=== PATIENT | female | born 1995 | race Caucasian/White ===

== ENCOUNTER → 2018-08-25 11:47 | Outpatient (CLI) | payer MEDICAID, SELFPAY ==
[2018-08-25 12:15] LABS: Basophils % 0.5 % (0.1-2.0); Eosinophils # 0.2 K/mm3 (0.0-0.4); Eosinophils % 2.7 % (0.1-12.0); Hematocrit 38.6 % (37.0-47.0); Hemoglobin 13.1 g/dL (12.2-16.2); Lymphocytes # 1.7 K/mm3 (0.7-4.5); Lymphocytes % 22.5 % (10-50); Mean Corpuscular Hemoglobin 29.1 pg (27.0-31.2); Mean Corpuscular Volume 85.5 fl (81-99); Mean Platelet Volume 7.7 fl (7.4-10.4); Monocytes # 0.4 K/mm3 (0.1-1.0); Neutrophils # 5.3 K/mm3 (1.8-7.8); Neutrophils % 69.1 % (37.0-80.0); Platelet Count 255 K/mm3 (142-424); Red Blood Count 4.51 M/mm3 (4.20-5.40); White Blood Count 7.7 K/mm3 (4.8-10.8)
[2018-08-26 08:53] LABS: HIV Screen 4th Generation wRfx Non Reactive (Non Reactive)
[2018-08-26 12:44] LABS: Hepatitis B Surface Antigen Negative (Negative); Hepatitis C Antibody <0.1 s/co ratio (0.0-0.9); Rapid Plasma Reagin Ab Titer Non Reactive (NonRea<1:1)
== END ==
PROVIDERS: Visit Provider Nurse Practitioner Obstetrics & Gynecology
DX: Z34.90 Encounter for supervision of normal pregnancy, unspecified, unspecified trimester (principal)
CPT/HCPCS: 36415; 85025; 86592; 86703; 86762; 86850; 87340; 87380; G0432

== ENCOUNTER → 2018-09-01 13:15 | Outpatient (CLI) | payer MEDICAID, SELFPAY ==
--- NOTE | 2018-09-01 13:17 | US_ITS ---
US OB transvaginal HISTORY: ITS.REASON: US OB Dates ORDERING PHYSICIAN: Angel Patiño MD PATIENT AGE: 23 years COMPARISON: None FINDINGS: An intrauterine gestational sac is present with a pole with a crown-rump length of 2.44cm correlating to gestational age of 9w2d. heart tones are present with an FHR of 170 bpm's. Yolk sac is noted. Adnexa: 7 mm left ovarian cyst. Right ovary not visualized. IMPRESSION: Live intrauterine gestation at 9 weeks 2 days as described above. Estimated due date by Ultrasound is 04/04/2019
== END ==
PROVIDERS: PCP Emergency Medicine; Visit Provider Nurse Practitioner Obstetrics & Gynecology
DX: O26.841 Uterine size-date discrepancy, first trimester (principal)
CPT/HCPCS: 76817

== ENCOUNTER → 2018-11-11 12:48 | Outpatient (CLI) | payer MEDICAID, SELFPAY ==
--- NOTE | 2018-11-11 12:50 | US_ITS ---
US OB /maternal detail: INDICATION: ITS.REASON: US OB Complete ORDERING PHYSICIAN: Angel Patiño MD PATIENT AGE: 23 years TECHNIQUE: ultrasound transabdominal scanning. COMPARISON: No previous relevant studies. FINDINGS: Single viable intrauterine gestation. Breech position. Placenta: Posterior/fundal placenta grade 1. There is average amount fluid. The cervix appears satisfactory. Closed and measuring 4.7 cm in length. Dilation is moderately limited due to maternal body habitus. Complete survey performed and was unremarkable on the submitted images as in PACS. No discrete anomalies identified on survey imaging by technologist. Active fetus. Three-vessel cord with satisfactory umbilical cord insertion. 4- chamber heart noted. Survey of brain & ventricles unremarkable. Face and neck survey unremarkable. Diaphragm and chest views unremarkable. Abdomen: Both kidneys noted and unremarkable. Stomach noted and satisfactory. Spine: Survey of the spine satisfactory is very limited Both arms and legs noted. Amniotic Fluid: Adequate. Maternal adnexa: No significant findings. Measurements: Average ultrasound age 19w4d. Gestational Age 19w4d. Estimated due date by ultrasound age 1204/03/2019. Estimated weight 306 grams. BPD = 19w5d OFD = 19w4d HC = 18w6d AC = 20w0d FL = 19w5d Growth Percentile= 51 Heart Rate = 155 Cerebellum = 19w4d Humerus = 20w6d HC/AC is 1.09 (1.09-1.26). CI is 81% (70-86%). FL/BPD is 69%. FL/AC is 21%. IMPRESSION: There is a single live fetus which is in region presentation with an average ultrasound age of 19 weeks 4 days. Evaluation of the fetus is limited secondary to maternal body habitus. No obvious anomalies are apparent. All parameters correlate. The spine is not well demonstrated. Please see above for details
== END ==
PROVIDERS: PCP Emergency Medicine; Visit Provider Nurse Practitioner Obstetrics & Gynecology
DX: Z36.0 Encounter for antenatal screening for chromosomal anomalies (principal)
CPT/HCPCS: 76811

== ENCOUNTER → 2018-11-17 16:39 | Outpatient (CLI) | payer MEDICAID, SELFPAY | PROVIDERS: Visit Provider Nurse Practitioner Obstetrics & Gynecology | DX: N39.0 Urinary tract infection, site not specified (principal); Z34.90 Encounter for supervision of normal pregnancy, unspecified, unspecified trimester | CPT/HCPCS: 87086 ==

== ENCOUNTER 2018-12-14 16:06 | Outpatient (CLI) | payer MEDICAID, SELFPAY ==
[2018-12-14 16:17] VITALS: BMI 48.2
[2018-12-14 16:29] LABS: Microscopic, Urine URINE MICROSCOPIC (MICROSCOPIC)
[2018-12-14 16:32] VITALS: BP 129/70; PULSE 105; RESP 18; TEMP 36.7; O2SAT 96; BMI 48.2
[2018-12-14 16:34] LABS: Appearance,Urine CLOUDY (Clear); Bilirubin,Urine Negative (Negative); Blood, Urine Negative (Negative); Color,Urine YELLOW (Yellow); Glucose,Urine (UA) Negative (Negative); Ketones,Urine Negative (Negative); Leukocyte Esterase,Urine Negative (Negative); Nitrate,Urine Negative (Negative); PH,Urine 7.5 (5.0-8.5); Protein,Urine Negative (Negative); Urobilinogen,Urine 0.2 EU/dl (0.2)
[2018-12-14 16:42] LABS: Bacteria,Urine 4+ /lpf; WBC,Urine Occasional #/hpf (0-3)
[2018-12-14 16:49] LABS: Amphetamine/Metha Screen,Urine Negative ng/mL (<1000); Barbiturates Screen,Urine Negative ng/mL (<200); Benzodiazepines Screen,Urine Negative ng/mL (<200); Cannabinoid Screen,Urine Negative ng/mL (<50); Cocaine Screen,Urine Negative ng/mL (<300); Methadone Screen,Urine Negative ng/mL (<300); Opiate Screen,Urine Negative ng/mL (<300); Phencyclidine Screen,Urine Negative ng/mL (<25)
== END 2018-12-14 17:18 | disposition home or self-care (01) ==
LOC: OBOUT 16:08 → OB 16:13
PROVIDERS: PCP Nurse Practitioner Obstetrics & Gynecology; Visit Provider Nurse Practitioner Obstetrics & Gynecology
DX: O47.02 False labor before 37 completed weeks of gestation, second trimester (principal); Z3A.24 24 weeks gestation of pregnancy
CPT/HCPCS: 59025; 80305; 81001; 87086

== ENCOUNTER → 2018-12-25 08:04 | Outpatient (CLI) | payer MEDICAID, SELFPAY ==
[2018-12-25 09:18] LABS: Glucose,Fasting 81 mg/dL (60-105)
[2018-12-25 10:35] LABS: Glucose 1 Hour 108 mg/dL (74-106)
== END ==
PROVIDERS: Visit Provider Nurse Practitioner Obstetrics & Gynecology
DX: Z34.90 Encounter for supervision of normal pregnancy, unspecified, unspecified trimester (principal)
CPT/HCPCS: 36415; 82951

== ENCOUNTER → 2019-02-18 14:37 | Outpatient (CLI) | payer MEDICAID, SELFPAY ==
--- NOTE | 2019-02-18 14:40 | US_ITS ---
PROCEDURE: US OB BPP W/FET-MAT S/D CLINICAL INDICATION: OB US BPP/GROWTH for LGA COMPARISON: No exams were available for comparison FINDINGS: There is a single live fetus which is in cephalic presentation. heart and body motion is noted. Average ultrasound age is 34 weeks 6 days. Estimated weight is 2703 g which is 67th percentile. BPD 34 weeks 1 D OFD 34 weeks 5 D HC 34 weeks 0 D AC 37 weeks 0 D FL 34 weeks 0 D Growth Percentile= 67th percentile% Heart Rate = 144 bpm HC/AC is 0.93 CI is 0.78 FL/BPD is 0.78 FL/AC is 0.2 Placenta is fundal and anterior in implantation and is grade 2. Amniotic fluid index is 14 cm. Biophysical profile is 8 of 8. Umbilical artery evaluation shows an SD ratio of 2.9 and a resistive index of 0.66 both less than 95th percentile. IMPRESSION: There is a single live fetus which is in cephalic presentation. heart and body motion is noted. Average ultrasound age is 34 weeks 6 days. Estimated weight is 2703 g which is 67th percentile. Placenta is fundal and anterior in implantation and is grade 2. Amniotic fluid index is 14 cm. Biophysical profile is 8 of 8. Umbilical artery evaluation shows an SD ratio of 2.9 and a resistive index of 0.66 both less than 95th percentile. The abdominal circumference is slightly larger than the other parameters within FL/AC of 0.2 and HC/AC of 0.93 both of which are slightly low Dictated by: Zak Okeefe MD 02/18/2019 17:48 Electronically signed by Zak Okeefe MD in [place] 02/18/2019 17:48
== END ==
PROVIDERS: PCP Emergency Medicine; Visit Provider Nurse Practitioner Obstetrics & Gynecology
DX: O36.60X0 Maternal care for excessive fetal growth, unspecified trimester, not applicable or unspecified (principal)
CPT/HCPCS: 76819

== ENCOUNTER → 2019-03-01 16:57 | Outpatient (CLI) | payer MEDICAID, SELFPAY | PROVIDERS: Visit Provider Nurse Practitioner Obstetrics & Gynecology | DX: Z34.90 Encounter for supervision of normal pregnancy, unspecified, unspecified trimester (principal) | CPT/HCPCS: 86403 ==

== ENCOUNTER 2019-03-14 13:54 | Outpatient (CLI) | payer MEDICAID, SELFPAY ==
[2019-03-14 14:01] VITALS: BMI 50.3
[2019-03-14 14:12] LABS: Microscopic, Urine URINE MICROSCOPIC (MICROSCOPIC)
[2019-03-14 14:13] LABS: Appearance,Urine CLEAR (Clear); Bilirubin,Urine Negative (Negative); Blood, Urine Negative (Negative); Color,Urine YELLOW (Yellow); Glucose,Urine (UA) Negative (Negative); Ketones,Urine TRACE (Negative); Leukocyte Esterase,Urine Negative (Negative); Nitrate,Urine Negative (Negative); Protein,Urine Negative (Negative); Specific Gravity, Urine >= 1.030 (1.005-1.030); Urobilinogen,Urine 0.2 EU/dl (0.2)
[2019-03-14 14:22] LABS: Amphetamine/Metha Screen,Urine Negative ng/mL (<1000); Barbiturates Screen,Urine Negative ng/mL (<200); Benzodiazepines Screen,Urine Negative ng/mL (<200); Cannabinoid Screen,Urine Negative ng/mL (<50); Cocaine Screen,Urine Negative ng/mL (<300); Methadone Screen,Urine Negative ng/mL (<300); Opiate Screen,Urine Positive ng/mL (<300); Phencyclidine Screen,Urine Negative ng/mL (<25)
[2019-03-14 14:24] LABS: Bacteria,Urine Trace /lpf; Mucus,Urine Trace /lpf; RBC,Urine Occasional #/hpf (0-3)
[2019-03-14 14:32] VITALS: BP 138/78; PULSE 86; RESP 18; TEMP 36.6; O2SAT 96; BMI 50.3
[2019-03-14 14:44] LABS: Fetal Membrane Rupture (Rapid) Negative (Negative)
== END 2019-03-14 15:25 | disposition home or self-care (01) ==
LOC: OBOUT 13:55 → OB 14:00
PROVIDERS: PCP Emergency Medicine; Visit Provider Obstetrics & Gynecology
DX: O47.03 False labor before 37 completed weeks of gestation, third trimester (principal); Z3A.37 37 weeks gestation of pregnancy
CPT/HCPCS: 59025; 80305; 81001; 84112; 96360

== ENCOUNTER 2019-03-25 03:28 | Inpatient (IN) ==
[2019-03-25 04:13] LABS: Microscopic, Urine URINE MICROSCOPIC (MICROSCOPIC)
[2019-03-25 04:16] LABS: Appearance,Urine CLEAR (Clear); Bilirubin,Urine Negative (Negative); Blood, Urine 3+ (Negative); Color,Urine YELLOW (Yellow); Glucose,Urine (UA) Negative (Negative); Ketones,Urine Negative (Negative); Leukocyte Esterase,Urine Negative (Negative); PH,Urine 6.5 (5.0-8.5); Protein,Urine TRACE (Negative); Specific Gravity, Urine 1.025 (1.005-1.030); Urobilinogen,Urine 0.2 EU/dl (0.2)
[2019-03-25 04:20] LABS: Bacteria,Urine 1+ /lpf; Mucus,Urine 1+ /lpf
[2019-03-25 04:25] LABS: Amphetamine/Metha Screen,Urine Negative ng/mL (<1000); Barbiturates Screen,Urine Negative ng/mL (<200); Benzodiazepines Screen,Urine Negative ng/mL (<200); Cannabinoid Screen,Urine Negative ng/mL (<50); Cocaine Screen,Urine Negative ng/mL (<300); Methadone Screen,Urine Negative ng/mL (<300); Opiate Screen,Urine Negative ng/mL (<300); Phencyclidine Screen,Urine Negative ng/mL (<25)
[2019-03-25 05:03] LABS: Basophils % 0.2 % (0.1-2.0); Eosinophils # 0.1 K/mm3 (0.0-0.4); Eosinophils % 1.4 % (0.1-12.0); Hematocrit 38.6 % (37.0-47.0); Hemoglobin 12.6 g/dL (12.2-16.2); Lymphocytes # 1.7 K/mm3 (0.7-4.5); Mean Corpuscular HGB Conc 32.7 g/dL (31.8-35.4); Mean Corpuscular Volume 89.8 fl (81-99); Mean Platelet Volume 9.7 fl (7.4-10.4); Monocytes # 0.6 K/mm3 (0.1-1.0); Monocytes % 5.4 % (1.7-9.3); Neutrophils # 7.6 K/mm3 (1.8-7.8); Platelet Count 245 K/mm3 (142-424); Red Cell Distribution Width 15.5 % (11.5-17.5); White Blood Count 10.1 K/mm3 (4.8-10.8)
[2019-03-25 05:43] LABS: Anion Gap 16.2 mEq/L (5-15); Calcium 8.6 mg/dL (8.5-10.1)
--- NOTE | 2019-03-25 08:05 | Progress Note ---
[facility] Anesthesia Checklist - Structural Data Admitted From: Inpatient Planned Operative Procedure/s: c/section Consent for Planned Operative Procedure(s) Verified: Yes - Airway Assessment C-Spine Mobility Assessed: Yes TMJ Mobility Assessed: Yes Dentition: Good Dentition - Neurological Assessment Level of Consciousness: Awake, Alert, Appropriate - Anesthesia Plan Anesthesia Risk discussed: Yes Anesthesia Plan: Verified ASA Class: II Anesthesia Type: Spinal [facility] History I have reviewed the patient's past medical history: Yes Medical History: Denies:: Anxiety, Diabetes Mellitus Type 1, Migraine, Seizures *Have you ever received a pneumonia vaccine?: No *Have you received a flu vaccine this season?: No Anesthesia experience/problems:: none Other Surgeries: Yes: Amputation: No Fractures: No - *Social History Smoking Status: Current every day smoker # Packs/Day (cigarettes): 1 Alcohol Intake: never Substance Use Type: denies use *Occupational Status:: unemployed Housing: house *Travel in the last 8 weeks: None - Psychiatric History Pschychiatric History:: Denies:: Anxiety Family Hx:: Cancer, Diabetes Para: 1
--- NOTE | 2019-03-25 10:13 | Progress Note ---
[facility] Anesthesia Record Part I Intake, IV Amount: 1,500 Estimated blood loss (mL): 600 Urine output (mL): 250 Blood Pressure: 116/68 SaO2: 96 Pulse Rate: 70 Respiratory Rate: 12 Temperature: 98 F Patient is:: Awake, Stable Stable to PACU at:: 10:10
--- NOTE | 2019-03-25 10:13 | Progress Note ---
[facility] Anesthesia Record Part II Discharge Time: 10:40 Destination: Obstetric PACU nurse assessment reviewed?: Yes Patient Condition:: Good Anesthesia Complications:: None Swallowing reflex intact?: Yes Cyanosis?: No
--- NOTE | 2019-03-25 10:35 | Operative Note ---
Date of procedure: 03/25/19 Pre-op Diagnosis:: 1. 38 6/7 weeks gestation 2. Previous C Section, declines TOLAC 3. Desired sterilization 4. Morbid obesity, BMI 50 Post-op Diagnosis:: 1. 38 6/7 weeks gestation 2. Previous C Section, declines TOLAC 3. Desired sterilization 4. Morbid obesity, BMI 50 Procedure performed:: 1. Repeat Low Transverse C Section 2. Bilateral tubal ligation Surgeon:: Shalonda Hodges MD Merchandise Complaint Adjuster(s):: Martin Shaikh MD RECORD LABEL INTERN:: Silvino Holman Anesthesia: spinal Estimated blood loss (mL): 600 Operative findings:: Male in vertex presentation, nuchal cord x 2 Grossly normal appearing uterus, fallopian tubes and ovaries Operative note:: The patient was taken to the OR and spinal was administered without difficulty. She was prepped and draped in normal sterile fashion. A pfannenstiel skin incision was made with the scalpel and carried down to the fascia. The fascia was incised in the midline and sharply dissected off the rectus muscles. The muscles were in the midline and the peritoneum was entered sharply and extended bluntly. The Low-O self retaining retractor was placed in the abdomen and a bladder flap was created. The uterus was incised in the lower uterine segment in a transverse fashion and extended bluntly. Amniotomy was performed and clear fluid noted. The was delivered in controlled fashion, without complication or shoulder dystocia. A nuchal cord x 2 was reduced on the field. The infant was vigorous at and handed to awaiting pediatricians for evaluation after cord clamped and cut. Cord blood was collected and a cord segment was preserved. The placenta was manually extracted and noted to be intact. The uterus was repaired with 0-vicryl in a running/locked fashion. Both fallopian tubes were tied off midway down the length of the tube, with the intervening segment of tube excised and stump cauterized. All pedicles were hemostatic. The peritoneum was closed with 2-0 vicryl in a running fashion. The fascia was closed with #1 vicryl in a running fashion. The subcutaneous fat was closed with 2-0 vicryl in an interrupted fashion. The skin was closed with lissa. The patient tolerated the procedure well. Sponge, lap, needle and instrument counts were correct x 2. EBL 600cc. She was taken to PACU awake and in stable condition. Condition: stable Disposition: PACU Specimens:: placenta, cross sections bilateral fallopian tube Complications:: none
--- NOTE | 2019-03-25 11:35 | Pharmacy Consult Notes ---
[facility] Pharmacy VTE Monitoring - Patient Demographics Admission date: 03/25/19 Report Date: 03/25/19 Time: 11:35 Allergies/Adverse Reactions: Patient Allergies No Known Drug Intolerances Allergy (Unknown, Verified 03/23/19 11:42) NA Height: 1.63 m Weight: 132.449 kg Patient Problems: Current Active Problems Morbid obesity with BMI of 50.0-59.9, adult (Acute) tubal ligation planned (Acute) Previous section (Acute) 38 weeks gestation of (Acute) - VTE Risk Labs: VTE Related Lab Results Hgb 12.6 g/dL (12.2-16.2) 03/25/19 04:50 Hct 38.6 % (37.0-47.0) 03/25/19 04:50 Plt Count 245 K/mm3 (142-424) 03/25/19 04:50 BUN 20 mg/dL (7-18) H 03/25/19 04:50 Creatinine 0.55 mg/dL (0.55-1.02) 03/25/19 04:50 Estimated Creat Clear 135 mL/min (50-200) 03/25/19 04:50 - Prophylaxis VTE Prophylaxis Ordered?: Yes Types of VTE Prophylaxis: IPCS Thigh High Location of Applied Device: Bilateral Lower Extremeties
[2019-03-25 12:54] VITALS: BP 124/75
--- NOTE | 2019-03-25 15:48 | Discharge Summary ---
General - General Admission date:: 03/25/19 Discharge date: 03/25/19 HPI HPI: 23 yo admitted with SROM at 38 6/7 complicated by CHTN and obesity s/p elective repeat CS with BTL Infant evaluation revealed imperforate anus and required transfer to tertiary care center Mother being transferred as well under compassionate care Hospital Course Rhogam Administration: Not Indicated Objective Vital signs: Temp Pulse Resp BP 98 F 70 12 116/68 03/25/19 10:12 03/25/19 10:12 03/25/19 10:12 03/25/19 10:12 Narrative: CONSTITUTIONAL: no acute distress HEENT: mucous membranes moist PULMONARY: breathing unlabored without audible wheezes CV: no tachycardia or visible JVD; normal LE peripheral pulses ABD: soft, ND; appropriately tender but no rebound/guarding : fundus firm at umbilicus SKIN: incision well approximated with no drainage, erythema or induration EXT: 1+ edema LEs NEURO: alert/oriented, no altered mental status PSYCH: appropriate mood and demeanor without anxiety/depression Results Labs on day of discharge: Labs from last 24 hours 03/25/19 03/25/19 03/25/19 04:50 04:50 04:50 WBC 10.1 RBC 4.30 Hgb 12.6 Hct 38.6 MCV 89.8 MCH 29.3 MCHC 32.7 RDW 15.5 Plt Count 245 MPV 9.7 Neut % (Auto) 76.0 Lymph % (Auto) 17.0 [place] % (Auto) 5.4 Eos % (Auto) 1.4 Baso % (Auto) 0.2 Neut # (Auto) 7.6 Lymph # (Auto) 1.7 [place] # (Auto) 0.6 Eos # (Auto) 0.1 Baso # (Auto) 0.0 Sodium 138 Potassium 4.2 Chloride 105 Carbon Dioxide 21 Anion Gap 16.2 H BUN 20 H Creatinine 0.55 Estimated Creat Clear 135 Estimated GFR 135 Est GFR ( Amer) 163 Glucose 88 Calcium 8.6 Urine Color Urine Appearance Urine pH Ur Specific [place] Urine Protein Urine Glucose (UA) Urine Ketones Urine Blood Urine Nitrate Urine Bilirubin Urine Urobilinogen Ur Leukocyte Esterase Urine RBC Urine WBC Ur Squamous Epith Cells Urine Bacteria Urine Mucus Membrane Rupture Urine Opiates Screen Urine Methadone Screen Ur Barbituates Screen Ur Phencyclidine Scrn Ur Amphetamines Screen U Benzodiazepines Scrn Urine Cocaine Screen U Marijuana (THC) Screen Blood Type O Positive Antibody Screen Negative 03/25/19 03/25/19 03/25/19 03:40 03:40 03:40 WBC RBC Hgb Hct MCV MCH MCHC RDW Plt Count MPV Neut % (Auto) Lymph % (Auto) [place] % (Auto) Eos % (Auto) Baso % (Auto) Neut # (Auto) Lymph # (Auto) [place] # (Auto) Eos # (Auto) Baso # (Auto) Sodium Potassium Chloride Carbon Dioxide Anion Gap BUN Creatinine Estimated Creat Clear Estimated GFR Est GFR ( Amer) Glucose Calcium Urine Color Yellow Urine Appearance Clear Urine pH 6.5 Ur Specific [place] 1.025 Urine Protein Trace Urine Glucose (UA) Negative Urine Ketones Negative Urine Blood 3+ Urine Nitrate Negative Urine Bilirubin Negative Urine Urobilinogen 0.2 Ur Leukocyte Esterase Negative Urine RBC 10-20 Urine WBC 3-5 Ur Squamous Epith Cells 3-5 Urine Bacteria 1+ Urine Mucus 1+ Membrane Rupture Positive A Urine Opiates Screen Negative Urine Methadone Screen Negative Ur Barbituates Screen Negative Ur Phencyclidine Scrn Negative Ur Amphetamines Screen Negative U Benzodiazepines Scrn Negative Urine Cocaine Screen Negative U Marijuana (THC) Screen Negative Blood Type Antibody Screen DS: Diagnosis - Discharge Diagnosis (1) Chronic hypertension affecting Status: Acute (2) Morbid obesity with BMI of 50.0-59.9, adult Status: Acute (3) tubal ligation planned Status: Acute (4) Previous section Status: Acute (5) 38 weeks gestation of Status: Acute Discharge Plan - Patient Discharge Instructions - Follow up Plan Home Medications: Home Medications Medication Instructions Recorded Confirmed Type Vit Calc,Iron,Folic [Kpn] 1 tab PO DAILY 07/31/18 03/25/19 History acetaminophen 300 mg-codeine 30 mg 1 tab PO Q8H PRN #20 tab 03/01/19 03/25/19 Rx tablet Labetalol HCl 200 mg PO BID 03/25/19 03/25/19 History Prescriptions/Medication Reconciliation: No Action acetaminophen 300 mg-codeine 30 mg tablet 1 tab PO Q8H PRN #20 tab PRN Reason: pain Vit Calc,Iron,Folic [Kpn] 1 tab PO DAILY Labetalol HCl 200 mg PO BID - Problem Reconciliation Problems Reviewed?: Yes
--- OUTSIDE RECORDS SUMMARY | 2019-03-26 15:01 | External Medical Summary | Continuity of Care Document ---
:1995 Author Organization [facility] Address [address] [place] [address] Phone Care Team Providers Name Role Phone Haroon Attending Provider Lise Gonzalez Primary Care Provider Gloria Attending Provider Carroll Attending Provider Allergies, Adverse Reactions, Alerts Allergen Type Severity Reaction Last Verified Status Updated No Known Drug Allergy Unknown NA Yes Active Intolerances Medications Medication Status Dose Units Route Sig Qty Days Start End Instruct ions Date Date Acetaminophen Active 1 TAB Oral Q8H 17 March With Codeine 2018 10:19am Vit Active 1 TAB Oral Daily July Calc,Iron,Folic 2018 10:04pm Labetalol Hcl Active 200 MG Oral Twice February a 2018 6:53am Problems Active Problems Medical Problem Onset Date Status Nexplanon removal Active URI (upper respiratory infection) Active 38 weeks gestation of Active Annual physical exam Active tubal ligation planned Active Active Morbid obesity with BMI of Active 50.0-59.9, adult Previous section Active Chronic hypertension affecting Active Procedures Procedure Date Performed Status Group B Streptococcus Screen March 01, 2019 completed ([facility]) US OB BPP w/Fet-Mat & S/D February 18, 2019 completed Relevant Diagnostic Tests and/or Laboratory Data Laboratory Results Test Date/Time Result Interpretation Reference Result Perfo rming Range Comment Site Urine Color December 10:30am Urine Color Decemberth, 2019 11:05am Urine Color January Yellow 2018 1:07pm Urine Color January Yellow 2018 10:03am Urine Color February Yellow 2018 9:47am Urine Color February Monica 2018 10:59am Urine Color February Monica 2018 10:18am Urine Color February Yellow 2018 11:31am Urine Appearance December Clear 2018 10:30am Urine Appearance December Clear 2018 11:05am Urine Appearance January Clear 2018 1:07pm Urine Appearance January Clear 2018 10:03am Urine Appearance February Clear 2018 9:47am Urine Appearance February Clear 2018 10:59am Urine Appearance February Clear 2018 10:18am Urine Appearance February Clear 2018 11:31am Urine Glucose December Negative (UA) 2018 10:30am Urine Glucose December Negative (UA) 2018 11:05am Urine Glucose January See comment 100Mg/dl (UA) 2018 1:07pm Urine Glucose January Negative (UA) 2018 10:03am Urine Glucose February Negative (UA) 2018 9:47am Urine Glucose February Negative (UA) 2018 10:59am Urine Glucose February Negative (UA) 2018 10:18am Urine Glucose February Negative (UA) 2018 11:31am Urine Bilirubin December negative 2018 10:30am Urine Bilirubin December negative 2018 11:05am Urine Bilirubin January small 2018 1:07pm Urine Bilirubin January small 2018 10:03am Urine Bilirubin February negative 2018 9:47am Urine Bilirubin February negative 2018 10:59am Urine Bilirubin February negative 2018 10:18am Urine Bilirubin February small 2018 11:31am Urine Ketones December Negative 2018 mg/dL 10:30am Urine Ketones December Negative 2018 mg/dL 11:05am Urine Ketones October Trace 5 mg/dL 2018 1:07pm Urine Ketones January Negative 2018 mg/dL 10:03am Urine Ketones February Negative 2018 mg/dL 9:47am Urine Ketones February Negative 2018 mg/dL 10:59am Urine Ketones February Negative 2018 mg/dL 10:18am Urine Ketones February Negative 2018 mg/dL 11:31am Urine Protein December Trace 2018 10:30am Urine Protein December Trace 2018 11:05am Urine Protein February 24+ 2018 1:07pm Urine Protein February 242018 10:03am Urine Protein February Negative 2018 9:47am Urine Protein February Negative 2018 10:59am Urine Protein February Negative 2018 10:18am Urine Protein February 100++ 2018 11:31am Urine pH December 6.0 2018 10:30am Urine pH December 6.0 2018 11:05am Urine pH January 5.5 2018 1:07pm Urine pH January 6.0 2018 10:03am Urine pH November 6.0 2018 9:47am Urine pH November 6.0 2018 10:59am Urine pH November 7.0 2018 10:18am Urine pH February 6.0 2018 11:31am Urine Blood December negative 2018 10:30am Urine Blood December negative 2018 11:05am Urine Blood January nonhemolyzed 2018 trace 1:07pm Urine Blood October nonhemolyzed 2018 trace 10:03am Urine Blood February negative 2018 9:47am Urine Blood November nonhemolyzed 2018 trace 10:59am Urine Blood November negative 2018 10:18am Urine Blood November nonhemolyzed 2018 trace 11:31am Urine Specific December 1.025 [place] 2018 10:30am Urine Specific December 1.020 [place] 2018 11:05am Urine Specific January 1.025 [place] 2018 1:07pm Urine Specific January 1.025 [place] 2018 10:03am Urine Specific February 1.025 [place] 2018 9:47am Urine Specific February 1.020 [place] 2018 10:59am Urine Specific February 1.020 [place] 2018 10:18am Urine Specific November 1.030 [place] 2018 11:31am Urine Maryanne 0.2 Urobilinogen 2018 Dipstick 10:30am Urine Maryanne 0.2 Urobilinogen 2018 Dipstick 11:05am Urine October 0.2 Urobilinogen 2018 Dipstick 1:07pm Urine October 1 Urobilinogen 2018 Dipstick 10:03am Urine November 0.2 Urobilinogen 2018 Dipstick 9:47am Urine November 0.2 Urobilinogen 2018 Dipstick 10:59am Urine November 0.2 Urobilinogen 2018 Dipstick 10:18am Urine November 0.2 Urobilinogen 2018 Dipstick 11:31am Urine Nitrate Maryanne Negative 2018 10:30am Urine Nitrate Maryanne Negative 2018 11:05am Urine Nitrate October Negative 2018 1:07pm Urine Nitrate October Negative 2018 10:03am Urine Nitrate November Negative 2018 9:47am Urine Nitrate November Negative 2018 10:59am Urine Nitrate November Negative 2018 10:18am Urine Nitrate November Negative 2018 11:31am Urine Leukocyte Maryanne Negative Esterase 2018 10:30am Urine Leukocyte Maryanne Negative Esterase 2018 11:05am Urine Leukocyte October Negative Esterase 2018 1:07pm Urine Leukocyte October Negative Esterase 2018 10:03am Urine Leukocyte November Negative Esterase 2018 9:47am Urine Leukocyte November Negative Esterase 2018 10:59am Urine Leukocyte November Negative Esterase 2018 10:18am Urine Leukocyte November Negative Esterase 2018 11:31am White Blood Count February 10.1 K/mm3 4.8-10.[address] 2018 [place] [address] 4:50am Red Blood Count February 4.30 M/mm3 4.20-5.[address] 2018 [place] [address] 4:50am Hemoglobin February 12.6 g/dL 12.2-16.[address] 2018 [place] [address] 4:50am Hematocrit February 38.6 % 37.0-47.[address] 2018 [place] [address] 4:50am Mean Corpuscular November 89.8 fl 81-[address] 36 E Volume 2018 [place] [address] 4:50am Mean Corpuscular November 29.3 pg 27.0-31.2 [facility], [address] [place] [address] 36 E Hemoglobin 2018 [place] [address] 4:50am Mean Corpuscular February 32.7 g/dL 31.8-35.4 [facility], [address] [place] [address] 36 E Hemoglobin 2018 [place] [address] Concent 4:50am Red Cell February 15.5 % 11.5-17.5 [facility], [address] [place] [address] E Distribution 2018 [place] [address] Width 4:50am Platelet Count February 245 K/mm3 142-424 [facility], [address] [place] [address] E 2018 [place] 19551 4:50am Mean Platelet February 9.7 fl 7.4-10.4 [facility], [address] [place] [address] E Volume 2018 [place] [address] 4:50am Neutrophils (%) February 76.0 % 37.0-80.0 [facility], [address] [place] [address] E (Auto) 2018 [place] [address] 4:50am Lymphocytes (%) February 17.0 % 10-50 [facility], [address] [place] [address] E (Auto) 2018 [place] [address] 4:50am Monocytes (%) February 5.4 % 1.7-9.3 [facility], [address] [place] [address] E (Auto) 2018 [place] [address] 4:50am Eosinophils (%) February 1.4 % 0.1-12.0 [facility], [address] [place] [address] E (Auto) 2018 [place] [address] 4:50am Basophils (%) February 0.2 % 0.1-2.0 [facility], [address] [place] [address] E (Auto) 2018 [place] [address] 4:50am Neutrophils # February 7.6 K/mm3 1.8-7.8 [facility], [address] [place] [address] E (Auto) 2018 [place] [address] 4:50am Lymphocytes # February 1.7 K/mm3 0.7-4.5 [facility], [address] [place] [address] 36 E (Auto) 2018 [place] [address] 4:50am Monocytes # November 0.6 K/mm3 0.1-1.0 [facility], [address] [place] [address] 36 E (Auto) 2018 [place] [address] 4:50am Eosinophils # November 0.1 K/mm3 0.0-0.4 [facility], [address] [place] [address] 36 E (Auto) 2018 [place] [address] 4:50am Basophils # November 0.0 K/mm3 0-0.2 [facility], [address] [place] [address] 36 E (Auto) 2018 [place] [address] 4:50am Urine Color November Yellow Yellow [facility], [address] [place] [address] 36 E 2018 [place] [address] 8:50am Urine Appearance November Clear Clear [facility], [address] [place] [address] 36 E 2018 [place] [address] 8:50am Urine pH February 6.5 5.0-8.5 [facility], [address] [place] [address] 36 E 2018 [place] [address] 8:50am Urine Specific November 1.015 1.005-1.03 [facility], [address] [place] [address] 36 E [place] 2018 0 [place] [address] 8:50am Urine Protein November Negative Negative [facility], [address] [place] [address] 36 E 2018 [place] [address] 8:50am Urine Glucose November Negative Negative [facility], [address] [place] [address] 36 E (UA) 2018 [place] [address] 8:50am Urine Ketones November Negative Negative [facility], [address] [place] [address] 36 E 2018 [place] [address] 8:50am Urine Blood November Trace-i Negative [facility], [address] [place] [address] 36 E 2018 [place] [address] 8:50am Urine Nitrate November Negative Negative [facility], [address] [place] [address] 36 E 2018 [place] [address] 8:50am Urine Bilirubin November Negative Negative [facility], [address] [place] [address] 36 E 2018 [place] [address] 8:50am Urine November 0.2 EU/dl [facility], [address] [place] [address] 36 E Urobilinogen 2018 [place] [address] 8:50am Urine Leukocyte November Negative Negative [facility], [address] [place] [address] 36 E Esterase 2018 [place] [address] 8:50am Urine RBC November Occasional # [facility], [address] [place] [address] 36 E 2018 /[place] [address] 8:50am Urine WBC February None #/hpf [facility], [address] [place] [address] 36 E 2018 [place] [address] 8:50am Urine Squamous November Occasional [facility], [address] [place] [address] E Epithelial Cells 2018 #/hpf [place] [address] 8:50am Urine Bacteria February Trace /lpf None [facility], [address] [place] [address] 36 E 2018 [place] [address] 8:50am Urine Mucus February 1+ /lpf None [facility], [address] [place] [address] 36 E 2018 [place] [address] 3:40am Sodium Level February 138 mmol/L 136-145 [facility], [address] [place] [address] 36 E 2018 [place] [address] 4:50am Potassium Level February 4.2 mmoL/L 3.5-5.1 [facility], [address] [place] [address] 36 E 2018 [place] [address] 4:50am Chloride Level February 105 mmol/L 98-107 [facility], [address] [place] [address] 36 [address] 2018 [place] [address] 4:50am Carbon Dioxide February 21 mmol/L 21.0-32.0 [facility], [address] [place] [address] 36 E Level 2018 [place] [address] 4:50am Anion Gap February 16.2 mEq/L - [facility], [address] [place] [address] 36 E 2018 [place] [address] 4:50am Blood Urea February 20 mg/dL 11-12 [facility], [address] [place] [address] 36 E Nitrogen 2018 [place] [address] 4:50am Creatinine February 0.55 mg/dL 0.55-1.02 [facility], [address] [place] [address] 36 E 2018 [place] [address] 4:50am Estimated November 135 mL/min 0-300 [facility], [address] [place] [address] 36 E Creatinine 2018 [place] [address] Clearance 4:50am Estimated GFR February 163 ML/MIN >59 [facility], [address] [place] [address] 36 E ( 2018 [place] [address] Tongan) 4:50am Estimat November 135 ml/min >59 [facility], [address] [place] [address] 36 E Glomerular 2018 [place] [address] Filtration Rate 4:50am Glucose Level February 88 mg/dL 74-106 [facility], [address] [place] [address] E 2018 [place] [address] 4:50am Calcium Level February 8.6 mg/dL 8.5-10.1 [facility], [address] [place] [address] 36 E 2018 [place] [address] 4:50am Membranes November Positive Negative [facility], [address] [place] [address] 36 E Rupture (PAMG-1) 2018 [place] [address] 3:40am Urine Opiates November Negative [facility], [address] [place] [address] 36 E Screen 2018 ng/[place] [address] 3:40am Urine Barbituates November Negative [facility], [address] [place] [address] 36 E Screen 2018 ng/[place] [address] 3:40am Urine November Negative [facility], [address] [place] [address] 36 E Phencyclidine 2018 ng/[place] [address] Screen 3:40am Urine November Negative [facility], [address] [place] [address] 36 E Amphetamines 2018 ng/[place] [address] Screen 3:40am Urine Methadone November Negative [facility], [address] [place] [address] 36 E Screen 2018 ng/[place] [address] 3:40am Urine November Negative [facility], [address] [place] [address] 36 E Benzodiazepines 2018 ng/[place] [address] Screen 3:40am Urine Cocaine November Negative [facility], [address] [place] [address] 36 E Screen 2018 ng/[place] [address] 3:40am Urine Marijuana February Negative [facility], [address] [place] [address] (THC) Screen 2018 ng/[place] [address] 3:40am Microbiology Results Procedure Source Result Collection Result Result Performin g Date/Time Date/Time Comment Site Group B Vaginal Negative March 01February [facility], [address] Streptococcus for Group B 2018 9:47am 2018 [place] [address] Screen (EDER) Streptococc 9:36am us. Diagnostic Imaging Reports Report Dictated Date/Time Dictated By Status Radiology Report February 18, 2019 Zak Okeefe MD completed 3:34pm [facility] [address] [place] [address] [place] [address] Ultrasoun d Report Sig yelena Patient: Tony Sharp MR#: [id number] : 1995 Acct:[id number] Age/Sex: 23 / F ADM Date: 9 Loc: RAD Attending Dr: Angel Patiño MD Ordering Physician: Angel Patiño MD Date of Service: 02/18/19 Procedure(s): US OB BPP w/Fet-Mat & S/D Accession Number(s): [id number] cc: Zak Okeefe MD; Daren Gonzalez MD~ PROCEDURE: US OB BPP W/FET-MAT S/D CLINICAL INDICATION: OB US BPP/GROWTH for LGA COMPARISON: No exams were available fo r comparison FINDINGS: There is a single live fetus which is i n cephalic presentation. heart and body motion is noted. Average ultrasound age is 34 weeks 6 days. Estimated weight i s 2703 g which is 67th percentile. BPD 34 weeks 1 D OFD 34 weeks 5 D HC 34 weeks 0 D AC 37 weeks 0 D FL 34 weeks 0 D Growth Percentile= 67th percentile% Heart Rate = 144 bpm HC/AC is 0.93 CI is 0.78 FL/BPD is 0.78 FL/AC is 0.2 Placenta is fundal and anterior in impl antation and is grade 2. Amniotic fluid index is 14 cm. Biophys ical profile is 8 of 8. Umbilical artery evaluation shows an SD ratio of 2.9 and a resistive index of 0.66 both less than 95th perce ntile. IMPRESSION: There is a single live fetus which is i n cephalic presentation. heart and body motion is noted. Average ultrasound age is 34 weeks 6 days. Estimated weight is 2703 g which is 67th percentile. Placenta is fundal and anterior in impl antation and is grade 2. Amniotic fluid index is 14 cm. Biophysi michell profile is 8 of 8. Umbilical artery evaluation shows an SD ratio of 2.9 and a resistive index of 0.66 both less than 95th perce ntile. The abdominal circumference is slightly larger than t he other parameters within FL/AC of 0.2 and HC/AC of 0.93 both of which are slightly low Dictated by: Zak Okeefe MD 02/18/2019 17:48 Electronically signed by Zak Okeefe in [place] 02/18/2019 17:48 Advance Directives Advance Directive Response Recorded Date/Time Does the patient have an No March 08, 2019 12:00pm advanced directive on file? Living Will No March 08, 2019 12:00pm Does the patient have an No March 16, 2019 11:20am advanced directive on file? Living Will No March 16, 2019 11:20am Does the patient have an No March 01, 019 10:25am advanced directive on file? Living Will No March 01, 2019 1 0:25am Chief Complaint and Reason for Visit Chief Complaint LGA OFFICE DROP OFF NST C section Reason for Visit 38 weeks gestation of pregna ncy Chronic hypertension affecti ng Morbid obesity with BMI of 5 0.0-59.9, adult tubal ligation pl anned Previous section Encounters Encounter Location(s) Arrival/Admit Date Discharge/Depart Date Provider(s) Departed [facility] Physician December 29, December 29, 2018 Angel Patiño [facility]ician[facility] 2018 10:12am 10:53am [facility] Visit Departed [facility] Physician January 12, January 12, 2019 [place] [facility] 2018 10:47am 11:36am MD [facility] [place] Visit Departed [facility] Physician January 26, 2019 January 26, 2019 Jeremy Patiño [facility]ician[facility] 11:13am 11:34am [facility] Visit Departed [facility] Physician February 15, 2019 February 15, 2019 [place] [facility] 9:58am 10:42am [facility] Visit Registered [facility] Physician February 18, 2019 Angel kilpatrick [facility] 2:37pm Departed [facility] Physician March 01, 2019 March 01, 2019 [place] [facility] 9:39am 11:14am [facility] Visit Registered [facility] Physician March 01, 2019 Angel kilpatrick [facility] Group-Lab Drop 4:57pm MD Off to [facility] Departed [facility] Physician March 08, March 08, 2019 Angel Patiño [facility]ician[facility] 2018 10:49am 11:31am [facility] Visit Registered [facility] Physician March 14, March 14, 2019 Faviola Castro , Inpatient Group-Just for 2019 1:54pm 3:25pm MD [place] Departed [facility] Physician March 16, March 16, 2019 Angel Patiño [facility] 2019 10:08am 11:09am [facility] Visit Departed [facility] Physician March 23, March 23, 2019 Angel Patiño [facility]ician[facility] 2019 11:23am 11:47am [facility] Visit Discharged [facility] Physician March 25, March 25, 2019 Angel Patiño Inpatient Group-Obstetric 2019 5:16am 4:52pm Registered [facility] Physician March 26, Shalonda Hodges , Inpatient Group- 2019 2:57pm Recent Diagnosis Onset Date 38 weeks gestation of Chronic hypertension affecting Morbid obesity with BMI of 50.0-59.9, adult tubal ligation planned Previous section Assessments Diagnosis Onset Date Resolution Status 38 weeks gestation of acute Chronic hypertension acute affecting Morbid obesity with BMI acute of 50.0-59.9, adult tubal ligation acute planned Previous section acute Functional Status Observation Response Date Recorded Functional status ambulatory March 23, 2019 11:50am Functional status ambulatory March 08, 2019 12:00pm Oral Care Ability Independent March 08, 2019 12:00pm Bathing Ability Independent March 08, 2019 12:00pm Eating (Feeding) Ability Independent March 08, 2019 12:00pm Toileting Ability Independent March 08, 2019 12:00pm Functional status ambulatory February 15, 2019 1 1:05am Functional status ambulatory January 26, 2019 11 :38am Functional status ambulatory January 12, 2019 11:38am Functional status ambulatory March 16, 2019 11:20am Oral Care Ability Independent March 16, 2019 11:20am Bathing Ability Independent March 16, 2019 11:20am Eating (Feeding) Ability Independent March 16, 2019 11:20am Toileting Ability Independent March 16, 2019 11:20am Functional status ambulatory March 01, 2019 1 0:25am Functional status ambulatory December 29, 2018 5:08pm Goals Acute Goals Nursing Diagnosis: Knowledge Deficit D isease/Condition Goal(s): Education of di sease process Instruction(s): Follow provider p timmy/instructions (See attached discharge education) Follow/up with primary care provider as instructed in discharge packet Ambulatory Goals Pt. verbalized understanding of disease process/healthy behavior/Pt. to follow plan of care/education provided Immunizations Immunization Event Date Not Given Dose Lumber [employer]ight[employer] Lot Vac cine Reason Number Number Informatio n Statement (VIS) Deta il Fluvirin February 06, 2011 Hepatitis B May Vaccine1996 adol/ped dosage Measles, Mumps, July 14, and Rubella 1995 Virus Vaccine Measles, Mumps, May 02, and Rubella 1997 Virus Vaccine OPV July 15, 1995 OPV September 15, 1995 OPV May 02, 1997 Tetanus, December 03, Diphtheria, 2006 Pertussis (Tdap) Tetanus, August 29, Diphtheria, 2016 Pertussis (Tdap) DTP-Hib July 15, 1995 DTP-Hib September 15, 1995 DTP-Hib June 18, 1996 Hep B, July 14, ified 1995 formulation DTaP, May 02, ified 1997 formulation Mental Status Observation Response Date Recorded Able to Read Yes March 25, 2019 3:38am Able to Write Yes March 25, 2019 3:38am Medical Equipment No Medical Equipment Information available Insurance Providers Guarantor Tony Sharp Address [address] [place], [place] [id number] Contact Info. Home Phone: Payer Policy Id Coverage Id Subscriber's Subscriber Effective Expi ration Name Id Date Date [employer] [id number] 2016 [employer] of [place] Self Pay Self N/A [employer] [id number] Tony Adan [id number] Health Plan [facility] Plan of Treatment Her blood pressure is slightly elevated. We will go ahead and start labetalol 200 mg twice daily. She is scheduled for her repeat next week. She is scheduled for about 3 weeks. We will see her back in a week. She complains of some lower abdominal pain. She certainly measures up smaller than her dates. We will make arrangements for her to have an ultrasound to look at the growth of this baby. She did pass her sugar test. We will see her back in 2 weeks. Her cervix has not changed. She is doing well. We will schedule her for her repeat section on April 02. Today she said that she is definitely wanting a tubal ligation at the time of her section. We will see her back again in 2 weeks. We will see her back in 2 weeks time. Today we signed consents for her repeat and tubal ligation. We discussed the risk of surgery that includes bleeding, infection, injuries to the bowel and bladder. We discussed the rare risk of DVT. We discussed the need for DVT prophylaxis. We discussed the irreversibility of bilateral tubal ligation. All questions were answered and consents were signed. Today we performed her group B strep. She continues to have some lower abdominal pain. She says she takes a Tylenol 3 at night when she goes to bed. She has had a prescription last month that has lasted up until now. I discussed with her about the addiction potential of Tylenol 3. She is doing better. We will see her back in a couple of weeks. She measures up larger than her dates but her recent ultrasound was normal. Future Tests Future scheduled test information is unavailable Pending Tests Pending diagnostic test information is unavailable Future Visits Future appointment information is unavailable Referrals to Other Providers Reason for Referral Start Provider Provider Contact Provider Address Referral Date Information Admission to [facility] March [address] Future Procedures Future procedure information is unavailable Future Medications Future medication information is unavailable Patient Instructions Diet Diet Diet Diet Diet Antepartum Care How to Breastfeed Your Baby Diet Diet Social History Assigned Sex Female Vital Signs Vital Reading Result Reference Range Collection Date/ Time Height 162.56 cm Maryanne 3rd, 2 019 10:14am Weight 128.48 kg December 29, 2 019 10:14am BP Systolic 128 mm[Hg] 110-140 December 29, 2 019 10:14am BP Diastolic 82 mm[Hg] 60-90 December 29, 2 019 10:14am BMI (Body Mass Index) 48.6 kg/m2 December 29, 2018 10:14am Height 162.56 cm January 12, 2019 11:15am Weight 130.74 kg January 12, 2019 11:15am BP Systolic 130 mm[Hg] 110-140 January 12, 2019 11:15am BP Diastolic 80 mm[Hg] 60-90 January 12, 2019 11:15am BMI (Body Mass Index) 49.4 kg/m2 January 12, 2019 11:15am Height 162.56 cm January 26, 201 9 11:17am Weight 128.82 kg January 26, 201 9 11:17am BP Systolic 122 mm[Hg] 110-140 January 26, 201 9 11:17am BP Diastolic 84 mm[Hg] 60-90 January 26 201 9 11:17am BMI (Body Mass Index) 48.7 kg/m2 January 11:17am Height 162.56 cm February 15, 10:04am Weight 129.38 kg February 15, 10:04am BP Systolic 130 mm[Hg] 110-140 February 15, 10:04am BP Diastolic 90 mm[Hg] 60-90 February 15, 10:04am BMI (Body Mass Index) 48.9 kg/m2 February 152018 10:04am Height 162.56 cm March 01, 10:17am Weight 131.54 kg March 01, 10:17am BP Systolic 130 mm[Hg] 110-140 March 01, 10:17am BP Diastolic 86 mm[Hg] 60-90 March 01, 10:17am BMI (Body Mass Index) 49.8 kg/m2 March 012018 10:17am Height 162.56 cm March 08, 2 019 11:00am Weight 132.90 kg March 08, 2 019 11:00am BP Systolic 124 mm[Hg] 110-140 March 08, 2 019 11:00am BP Diastolic 84 mm[Hg] 60-90 March 08, 2 019 11:00am BMI (Body Mass Index) 50.3 kg/m2 February 262018 11:00am Height 162.56 cm March 14, 2 019 2:32pm Weight 132.90 kg March 14, 2 019 2:32pm Body Temperature 97.8 [degF] 97.6-99.6 March 14, 2019 2:32pm Heart Rate 86 /min 60-March 14, 2 019 2:32pm Respiratory rate 18 /min -March 14, 2019 2:32pm Oxygen saturation by 96 % 95-100 March 142018 Pulse oximetry 2:32pm BP Systolic 138 mm[Hg] 110-140 March 14, 2 019 2:32pm BP Diastolic 78 mm[Hg] 60-90 March 14, 2 019 2:32pm BMI (Body Mass Index) 50.3 kg/m2 February 262018 2:32pm Height 162.56 cm March 16, 2 019 10:15am Weight 132.90 kg March 16, 2 019 10:15am BP Systolic 118 mm[Hg] 110-140 March 16, 2 019 10:15am BP Diastolic 88 mm[Hg] 60-90 March 16, 2 019 10:15am BMI (Body Mass Index) 50.3 kg/m2 February 262018 10:15am Height 162.56 cm March 23, 2 019 11:40am Weight 132.44 kg March 23, 2 019 11:40am BP Systolic 120 mm[Hg] 110-140 March 23, 2 019 11:40am BP Diastolic 100 mm[Hg] 60-90 March 23, 2 019 11:40am BMI (Body Mass Index) 50.1 kg/m2 February 272018 11:40am Height 162.56 cm March 25, 2 019 3:38am Weight 132.44 kg March 25, 2 019 3:38am Body Temperature 98 [degF] 97.6-99.6 March 25, 2019 10:12am Heart Rate 70 /min -March 25, 2 019 10:12am Respiratory rate 12 /min -March 25, 2019 10:12am BP Systolic 116 mm[Hg] 110-140 March 25, 2 019 10:12am BP Diastolic 68 mm[Hg] 60-90 March 25, 2 019 10:12am BMI (Body Mass Index) 50.1 kg/m2 February 272018 3:38am
== END 2019-03-25 16:52 | disposition short-term general hospital (02) | DRG 785 ==
LOC: OBOUT 03:28 → OB 03:35
PROVIDERS: ADMIT Obstetrics & Gynecology; ATTEND Nurse Practitioner Obstetrics & Gynecology

== ENCOUNTER → 2022-01-25 15:57 | Outpatient (CLI) | payer MEDICAID, SELFPAY ==
[2022-01-25 14:28] LABS: Basophils # 0.1 K/mm3 (0-0.2); Basophils % 1.4 % (0.1-2.0); Eosinophils # 0.4 K/mm3 (0.0-0.4); Eosinophils % 4.3 % (0.1-12.0); Hematocrit 42.1 % (37.0-47.0); Hemoglobin 13.9 g/dL (12.2-16.2); Lymphocytes # 2.2 K/mm3 (0.7-4.5); Lymphocytes % 26.5 % (10-50); Mean Corpuscular Hemoglobin 29.2 pg (27.0-31.2); Mean Corpuscular Volume 88.5 fl (81-99); Mean Platelet Volume 8.9 fl (7.4-10.4); Monocytes # 0.4 K/mm3 (0.1-1.0); Monocytes % 4.5 % (1.7-9.3); Neutrophils # 5.2 K/mm3 (1.8-7.8); Neutrophils % 63.4 % (37.0-80.0); Platelet Count 273 K/mm3 (142-424); Red Blood Count 4.75 M/mm3 (4.20-5.40); Red Cell Distribution Width 14.2 % (11.5-17.5); White Blood Count 8.3 K/mm3 (4.8-10.8)
[2022-01-25 14:32] LABS: Alanine Aminotransferase 25 U/L (12-78); Albumin Level 3.9 g/dl (3.5-5.0); Albumin/Globulin Ratio 1.3 (1.1-1.8); Alkaline Phosphatase 94 U/L (38-126); Anion Gap 14.6 mEq/L (5-15); Aspartate Amino Transferase 24 U/L (14-36); Blood Urea Nitrogen 13 mg/dl (7-17); Carbon Dioxide 25 mmol/L (22.0-30.0); Chloride 103 mmol/L (98-107); Chol/HDL Ratio 4.3 (1-3.5); Cholesterol 155 mg/dl (140-200); Estimated Glomerular Filt Rate 119 ml/min (>60); GFR (African American) 144 ML/MIN (>60); Globulin 2.9 g/dL (1.3-3.2); Glucose 88 mg/dl (74-100); HDL Cholesterol 36 mg/dl (40-60); Potassium 4.6 mmoL/L (3.5-5.1); Sodium 138 mmol/L (136-145); Total Protein,Serum 6.8 g/dl (6.3-8.2); Triglycerides 82 mg/dl (30-150); VLDL Cholesterol 16 mg/dL (0-40)
[2022-01-25 14:33] LABS: Bilirubin,Total < 0.1 mg/dl (0.2-1.3)
[2022-01-25 14:43] LABS: Direct LDL Cholesterol 104.76 mg/dL (100-129)
[2022-01-25 14:49] LABS: Free T4 (Free Thyroxine) 1.07 ng/dl (0.78-2.19)
[2022-01-25 14:50] LABS: 25-OH Vitamin D, Total 24.2 ng/mL (30-100)
[2022-01-25 15:03] LABS: Thyroid Stimulating Hormone 1.43 uIU/mL (0.465-4.68)
== END ==
PROVIDERS: PCP Emergency Medicine; Visit Provider Emergency Medicine
DX: F32.A Depression, unspecified (principal); E55.9 Vitamin D deficiency, unspecified
CPT/HCPCS: 80053; 80061; 82306; 84439; 84443; 85025

== ENCOUNTER 2022-03-25 13:11 | Emergency (ER) | payer MEDICAID, SELFPAY ==
--- NOTE | 2022-03-25 15:12 | EXP.UTC ---
Discharge Plan Disposition Patient Disposition: Home, Self-Care Condition: Good Prescriptions Prescriptions: New benzonatate [benzonatate] 100 mg capsule 100 mg PO TIDP PRN (Reason: Cough) Qty: 30 0RF oseltamivir [Tamiflu] 75 mg capsule 75 mg PO BID Qty: 10 0RF No Action gabapentin 300 mg capsule 300 mg PO TID Qty: 90 2RF citalopram [Celexa] 10 mg tablet 10 mg PO DAILY Qty: 90 0RF cholecalciferol (vitamin D3) 1,250 mcg (50,000 unit) capsule 1,250 mcg PO WEEKLY Qty: 14 3RF Referrals Follow up/Referrals: Daren Gonzalez MD [Primary Care Provider] - See instructions Activity Restrictions/Add. Instructions Additional Instructions/Restrictions: Drink plenty of fluids. Take tylenol or ibuprofen for pain or fever. Take the medications as directed. Follow up with your regular doctor. GO TO THE ER FOR ANY WORSENING SYMPTOMS Clinical Impressions Clinical Impression: Influenza A Stand Alone Forms Stand Alone Forms: Work/School Release Instructions Patient Instructions: DI for Influenza -- Adult, Oseltamivir Discharge ED Provider: Suleman Lucero [facility] General Stated complaint: headache cough back pain Time Seen by Provider: 03/25/22 15:11 History of Present Illness Provider Complaint: She states that since yesterday she has had a head ache, chills, sore throat, and body aches. Related Data Previous Rx's Medication Instructions Recorded cholecalciferol (vitamin D3) 1,250 1,250 mcg PO WEEKLY Vitamin D 02/21/22 mcg (50,000 unit) capsule deficiency #14 caps gabapentin 300 mg capsule 300 mg PO TID #90 caps 02/22/22 citalopram 10 mg tablet (Celexa) 10 mg PO DAILY #90 tabs 02/25/22 benzonatate 100 mg capsule 100 mg PO TIDP PRN Cough #30 caps 03/25/22 oseltamivir 75 mg capsule (Tamiflu) 75 mg PO BID #10 caps 03/25/22 Allergies Allergy/AdvReac Type Severity Reaction Status Date / Time No Known Drug Intolerances Allergy Unknown NA Verified 03/25/22 15:25 PFSH PFS Social History Smoking Status: Former smoker alcohol intake: never substance use type: denies use current occupational status: unemployed Travel in the last 8 weeks: None housing: house ROS Obtained: Yes All systems reviewed & no additional complaints except as documented Constitutional Constitutional: Reports chills and Reports fever(s) Eyes Eyes: Denies eye discharge ENT Ears, Nose, Mouth, and Throat: Reports as per HPI Cardiovascular Cardiovascular: Denies chest pain Respiratory Respiratory: Denies chest congestion and Reports cough Gastrointestinal Gastrointestingal: Reports nausea; Denies abdominal pain, constipation, cramping, diarrhea or vomiting Musculoskeletal Musculoskeletal: Denies arthralgias Integumentary/Breasts Skin/Breast: Denies rash Neurologic Neurologic: Denies paresthesias Physical Exam General General appearance: alert and in no apparent distress Head Head exam: atraumatic, normocephalic and normal inspection Eye Eye exam: Present normal appearance, PERRL and EOMI ENT ENT exam: Present normal exam, normal oropharynx, mucous membranes moist, TM's normal bilaterally and normal external ear exam Neck Neck exam: Present normal inspection, full ROM and trachea midline; Absent meningismus or lymphadenopathy Chest Chest inspection: Present normal inspection and symmetric chest wall rise; Absent tenderness Respiratory Respiratory exam: Present normal lung sounds bilaterally; Absent respiratory distress Cardiovascular Cardiovascular exam: Present regular rate and normal rhythm; Absent JVD Abdominal Exam Abdominal exam: Present soft and normal bowel sounds; Absent distention, tenderness or guarding Extremities Exam Extremities exam: Present normal inspection, full ROM and normal capillary refill; Absent calf tenderness Back Exam Back exam: Present normal inspection; Absent tenderness Neurological Exam Neurologic
[2022-03-25 15:23] VITALS: BP 114/80; PULSE 101; RESP 18; TEMP 36.6; O2SAT 95; BMI 41.9
[2022-03-25 15:27] LABS: UTC Influenza A Antigen Positive (Negative)
[2022-03-25 15:28] LABS: UTC Influenza B Antigen Negative (Negative)
[2022-03-25 15:42] VITALS: BP 114/80; PULSE 101; RESP 18; TEMP 36.6
== END 2022-03-25 15:46 | disposition home or self-care (01) ==
PROVIDERS: Emergency Provider Nurse Practitioner Family; PCP Emergency Medicine
DX: J10.1 Influenza due to other identified influenza virus with other respiratory manifestations (principal)
CPT/HCPCS: 87804; 99212; G0463

== ENCOUNTER 2022-08-30 11:08 | Outpatient (RCR) | payer MEDICAID, SELFPAY ==
--- NOTE | 2022-08-30 12:57 | HMH.PTOPEV ---
PT Outpatient Evaluation Rehab PT Outpatient Evaluation Start: 08/30/22 11:12 Freq: Status: Active Protocol: Document 08/30/22 11:12 JENNIFER (Rec: 08/30/22 12:33 JENNIFER [id number]) E-signed By Estrellita iRco, PT Outpatient Therapy Subjective History Subjective History Pt presents to the PT clinic with reports of low back pain that began before she had children that has worsened since having children. Pt reports her youngest child is 4 years old. Pt reports that she has low back pain and L sided hip pain. Pt reports that her low back pain waxes/ wanes, reports that some days she has a hard time getting out bed due to the pain. Pt reports that sometimes standing up and walking can help to relieve some of her pain. Pt reports she experiences back and L hip pain when lifting things off the floor. PMH: none per pt Chief Complaint Pain,Stiff,Gives out/Unstable, Weakness Symptom Type Ache,Throb,Sharp Symptoms Relieved By Rest/Positioning,OTC Meds, Prescription Meds,Activity Symptoms Aggravated By Prone,Supine,Sitting,Bending/ Stooping,Physical Activity, Lifting Prior Functional Limitations None Current Functional Limitations Lifting,Housework,Desk Work/ Reading,Sleeping,Sitting, Squatting,Stairs,Balance, Bending/Stooping Symptom Description Constant but Variable Level of pain today (0-10) 8 Pain scale - at its best (0-10) 3 Pain scale - at its worst (0-10) 9 Lumbopelvic Eval Posture Lumbar Spine Posture Standing Position Increased Lordosis Assistive device Assistive Devices None / NA Palapation tenderness left thoracic spinal tenderness No lumbar spinal tenderness Yes: 3/3 paraspinal tenderness Yes: 3/3 buttock tenderness Yes: 3/3 Lumbar/Sacral Palpation Findings Tenderness,Muscle Guarding Accessory Movement L-spine Vertebrae Accessory Movements Central P/A Big Bar that Elicit Symptoms L2 bilateral L3 bilateral
== END 2022-08-30 11:10 | disposition home or self-care (01) ==
LOC: PT 11:08
PROVIDERS: PCP Emergency Medicine; Visit Provider Emergency Medicine
DX: M54.16 Radiculopathy, lumbar region (principal)
CPT/HCPCS: 97163

== ENCOUNTER → 2023-02-03 13:23 | Outpatient (CLI) | payer MEDICAID, SELFPAY ==
[2023-02-03 17:18] LABS: Barbiturates Screen,Urine Negative ng/ml (<200); Benzodiazepines Screen,Urine Negative ng/ml (<200)
[2023-02-03 17:19] LABS: Amphetamine/Metha Screen,Urine Negative ng/ml (<1000)
[2023-02-03 17:20] LABS: Cannabinoid Screen,Urine Negative ng/ml (<50); Methadone Screen,Urine Negative ng/ml (<300)
[2023-02-03 17:21] LABS: Cocaine Screen,Urine Negative ng/ml (<300); Opiate Screen,Urine Negative ng/ml (<300)
[2023-02-03 17:22] LABS: Phencyclidine Screen,Urine Negative ng/ml (<25)
== END ==
PROVIDERS: PCP Emergency Medicine; Visit Provider Emergency Medicine
DX: M54.16 Radiculopathy, lumbar region (principal)
CPT/HCPCS: 80305

== ENCOUNTER 2023-02-13 14:11 | Emergency (ER) | payer MEDICAID, SELFPAY ==
[2023-02-13 14:11] VITALS: BP 118/79; PULSE 73; RESP 16; TEMP 36.8; O2SAT 99; BMI 42.4
--- NOTE | 2023-02-13 14:58 | EXP.UTC ---
Discharge Plan Disposition Patient Disposition: Home, Self-Care Condition: Good Prescriptions Prescriptions: New benzonatate 100 mg capsule 100 mg PO TID PRN (Reason: cough) Qty: 30 0RF azithromycin [Zithromax Z-Daniel] 250 mg tablet See Rx Instructions .ROUTE .COMPLEX 5 Days Qty: 6 0RF Rx Instructions: For 250 mg dose pack: take 500 mg today (day 1), then 250 mg for 4 days (days 2-5) methylprednisolone [Medrol (Daniel)] 4 mg tablets,dose pack See Rx Instructions .Route .COMPLEX 6 Days Qty: 21 0RF Rx Instructions: taper pack; guaifenesin [Mucinex] 600 mg tablet extended release 12hr 1,200 mg PO BID PRN (Reason: cough/congestion) Qty: 20 0RF No Action gabapentin 800 mg tablet 800 mg PO TID Qty: 90 2RF phentermine [Adipex-P] 37.5 mg tablet 37.5 mg PO DAILY Qty: 30 0RF Rx Instructions: must administer 30 minutes before or 1-2 hours after breakfast lidocaine 5 % adhesive patch,medicated 1 patch topical DAILY Qty: 30 0RF Rx Instructions: leave on most painful area for up to 12 hrs diclofenac sodium 1 % gel 2 g topical QID Qty: 100 0RF Rx Instructions: apply to single elbow, wrist or hand; for hand includes palm/fingers/back of hand cholecalciferol (vitamin D3) 1,250 mcg (50,000 unit) capsule 1,250 mcg PO WEEKLY Qty: 14 3RF Referrals Follow up/Referrals: Provider,Referral, MD [Primary Care Provider] - See instructions Activity Restrictions/Add. Instructions Additional Instructions/Restrictions: Start antibiotic today. Be sure to complete entire prescription even if feeling better Monitor temp. Tylenol every 4 hours as needed and / or ibuprofen every 6 hours as needed ( As long as your primary care physician has told you that it ok to take both. For fever/aches/pains ER if no less than 101 despite Tylenol or Motrin Humidifier/vaporizer or hot steamy shower Mucinex during the day for your cough and cough suppressant only at night. Be sure to drink lots of water. *Tessalon Perles will not cause drowsiness but use at bedtime to help stop cough so that you may get some rest. *Start steroid today. Helps with inflammation therefore, cough and wheezing. Follow directions on the package. Reviewed side effects. Patient reports taking them before. Follow up IMMEDIATELY for new or worsening of symptoms OR no noticeable improvement over the next 48-72 hours. 911 immediately for any life threatening symptoms such as chest pain or difficulty breathing Clinical Impressions Clinical Impression: Acute bronchitis Qualifiers: Bronchitis organism: unspecified organism Qualified Code(s): J20.9 - Acute bronchitis, unspecified Instructions Patient Instructions: Acute Bronchitis, Azithromycin Discharge ED Provider: Mariia Valverde [facility] HPI General Stated complaint: cough and soa Mode of Arrival: Ambulatory Source of Information: Patient Limitations: No Limitations Time Seen by Provider: 02/13/23 14:58 Description of Symptoms (Recalled from Triage Doc. by RN): Patient complaint of cough and shortness of breath for 3 days. HEENT Symptoms (Recalled from RN notes): Yes Resp Symptoms (Recalled from RN notes): No Skin Symptoms (Recalled from RN notes): No MS Symptoms (Recalled from RN notes): No Functional Status (Recalled from RN notes): wnl History of Present Illness Provider Complaint: Patient states that for the last 3 days she has been having cough and feeling SOA after coughing episode States that it is worse at night when she is laying down States that she was worried that it may turn into pneumonia so she came in to get checked Related Data Previous Rx's Medication Instructions Recorded cholecalciferol (vitamin D3) 1,250 1,250 mcg PO WEEKLY Vitamin D 02/21/22 mcg (50,000 unit) capsule deficiency #14 caps diclofenac sodium 1 % topical gel 2 g topical QID #100 grams 08/14/22 lidocaine 5 % topical patch 1 patch topical DAILY #
[2023-02-13 15:24] VITALS: BP 118/79; PULSE 73; RESP 16; TEMP 36.8; O2SAT 99
== END 2023-02-13 15:24 | disposition home or self-care (01) ==
PROVIDERS: Emergency Provider Nurse Practitioner
DX: J20.9 Acute bronchitis, unspecified (principal); Z87.891 Personal history of nicotine dependence
CPT/HCPCS: 99212; 99214; G0463

== ENCOUNTER 2023-05-02 09:55 | Outpatient (CLI) | payer MEDICAID, SELFPAY ==
[2023-05-02 12:42] LABS: Amphetamine/Metha Screen,Urine Negative ng/ml (<1000); Barbiturates Screen,Urine Negative ng/ml (<200); Benzodiazepines Screen,Urine Negative ng/ml (<200); Cannabinoid Screen,Urine Negative ng/ml (<50); Cocaine Screen,Urine Negative ng/ml (<300); Methadone Screen,Urine Negative ng/ml (<300); Opiate Screen,Urine Negative ng/ml (<300); Phencyclidine Screen,Urine Negative ng/ml (<25)
[2023-05-02 12:47] LABS: Chloride 105 mmol/L (98-107); Potassium 4.3 mmoL/L (3.5-5.1); Sodium 139 mmol/L (136-145)
[2023-05-02 12:48] LABS: Alanine Aminotransferase 20 U/L (12-78); Albumin Level 4.2 g/dl (3.5-5.0); Albumin/Globulin Ratio 1.5 (1.1-1.8); Alkaline Phosphatase 78 U/L (38-126); Anion Gap 13.3 mEq/L (5-15); Aspartate Amino Transferase 21 U/L (14-36); Bilirubin,Total 0.4 mg/dl (0.2-1.3); Blood Urea Nitrogen 14 mg/dl (7-17); Carbon Dioxide 25 mmol/L (22.0-30.0); Chol/HDL Ratio 5.4 (1-3.5); Cholesterol 167 mg/dl (140-200); Estimated Glomerular Filt Rate 98 ml/min (>60); GFR (African American) 119 ML/MIN (>60); Globulin 2.8 g/dL (1.3-3.2); Glucose 86 mg/dl (74-100); HDL Cholesterol 31 mg/dl (40-60); Triglycerides 89 mg/dl (30-150); VLDL Cholesterol 18 mg/dL (0-40)
[2023-05-02 12:50] LABS: Basophils # 0.1 K/mm3 (0-0.2); Basophils % 0.7 % (0.1-2.0); Eosinophils # 0.2 K/mm3 (0.0-0.4); Eosinophils % 2.6 % (0.1-12.0); Hematocrit 43.3 % (37.0-47.0); Hemoglobin 14.1 g/dL (12.2-16.2); Mean Corpuscular HGB Conc 32.6 g/dL (31.8-35.4); Mean Corpuscular Hemoglobin 29.2 pg (27.0-31.2); Mean Corpuscular Volume 89.7 fl (81-99); Mean Platelet Volume 8.9 fl (7.4-10.4); Monocytes # 0.3 K/mm3 (0.1-1.0); Monocytes % 3.8 % (1.7-9.3); Neutrophils # 4.6 K/mm3 (1.8-7.8); Platelet Count 280 K/mm3 (142-424); Red Blood Count 4.82 M/mm3 (4.20-5.40); Red Cell Distribution Width 13.8 % (11.5-17.5); White Blood Count 7.1 K/mm3 (4.8-10.8)
[2023-05-02 12:59] LABS: Direct LDL Cholesterol 109.99 mg/dL (100-129)
[2023-05-02 13:02] LABS: Free T4 (Free Thyroxine) 1.04 ng/dl (0.78-2.19)
[2023-05-02 13:36] LABS: 25-OH Vitamin D, Total 29.6 ng/mL (30-100)
== END 2023-05-02 23:59 ==
LOC: LAB.DROPOF 05-03 09:55
PROVIDERS: PCP Internal Medicine; Visit Provider Internal Medicine
DX: F41.9 Anxiety disorder, unspecified (principal); M54.50 Low back pain, unspecified; E55.9 Vitamin D deficiency, unspecified; E66.01 Morbid (severe) obesity due to excess calories; Z68.41 Body mass index [BMI] 40.0-44.9, adult; Z79.899 Other long term (current) drug therapy; Z72.0 Tobacco use
CPT/HCPCS: 80053; 80061; 80307; 82306; 83036; 84439; 84443; 85025

== ENCOUNTER → 2023-05-15 10:40 | Outpatient (POV) | payer MEDICAID, SELFPAY ==
--- NOTE | 2023-05-15 11:28 | EXP.PAIN.OV ---
HPI Data of Consult Patient: new to practice Consult date: 05/15/23 Requesting Physician: Monica Colunga APRN Primary Care Provider: Albaro Barkley DO Consult Narrative Reason for consult: Low back pain, left hip pain History of present illness: Ms. Sharp is a 28 year old female who presents today as a new patient. She is a referral from Albaro Barkley's office. Today she rates her pain a 6 out of 10. Patient states her pain is all in her low back as well as her left hip. Patient states this is been going on for years unrelated to any specific trauma or injury. Patient does describe this as an aching, burning sensation that is worse with increased activity or ambulation. Patient states that the pain does interfere with her ability perform activities of daily living such as cooking or cleaning. She states that a lot of times in the morning she has trouble getting up out of bed due to the pain. Patient has tried [id number] Tylenol and ibuprofen along with heat and ice and topicals with minimal relief. Patient did just complete physical therapy last year in fall with no additional relief. Patient states that she did have imaging back in 2019 that showed a pinched nerve however she has not had any additional imaging. Patient denies any heart or kidney issues. Patient denies any surgery or injection history. Patient states that she is not not necessarily interested in injections. Patient is currently managed with gabapentin 800 mg 3 times daily her Sea has been reviewed and is appropriate. CC: Monica Colunga APRN [facility] Disclaimer: The information contained in this section may have been updated after the patient was seen, as this information can be updated by other users. Social History Smoking Status: Former smoker alcohol intake: never substance use type: denies use current occupational status: unemployed Travel in the last 8 weeks: None housing: house Review of Systems Review of Systems Review of systems:: pertinent systems reviewed and negative unless documented below Review of systems (narrative): Review of Systems: General: No recent weight changes, no fever, no sleep disturbances Respiratory: No cough, no shortness of air, no recurring pulmonary infections Cardiovascular/peripheral vascular: No chest pain, no palpitations, no edema, no shortness of breath Gastrointestinal: No new onset incontinence, normal bowel movements reported Genitourinary: No new onset incontinence Musculoskeletal: Low back pain, left hip pain Psychiatric: [Normal mood/affect] Neurological: [Denies weakness in extremities], [denies balance issues] Meds Home Medications and Allergies Home Medications Medication Instructions Recorded Confirmed Type diclofenac sodium 1 % topical gel 2 g topical QID #100 grams 08/14/22 05/02/23 Rx lidocaine 5 % topical patch 1 patch topical DAILY #30 ea 08/14/22 05/02/23 Rx ergocalciferol (vitamin D2) 1,250 See Rx Instructions .Route 02/17/23 05/02/23 Rx mcg (50,000 unit) capsule (Vitamin .COMPLEX #42 caps D2) duloxetine 30 mg capsule,delayed 30 mg PO BID #60 caps 05/02/23 05/02/23 Rx release gabapentin 800 mg tablet 800 mg PO TID #90 tabs 05/02/23 05/02/23 Rx hydroxyzine HCl 25 mg tablet 25 mg PO BID PRN Anxiety or sleep 05/02/23 05/02/23 Rx #45 tabs semaglutide (weight loss) 0.25 0.25 mg (0.5 mL) SQ WEEKLY #2 mL 05/02/23 05/02/23 Rx mg/0.5 mL subcutaneous pen injector New Prescriptions to Start Prescriptions: Allergies Allergy/AdvReac Type Severity Reaction Status Date / Time No Known Drug Intolerances Allergy Unknown NA Verified 05/02/23 09:22 Objective Narrative: Physical Exam: General: Alert and oriented x3, no acute distress, pleasant and cooperative Lungs: Respirations even and unlabored, symmetrical chest expansion Eyes: PERRL Musculoskeletal: Flexion and extension of lumbar [spine] somewhat guarded secondary to pain, [antalgic gait noted] Neurological: Speech clear, no gross sensory deficit Assessment and Plan *Assessment and plan (1) Lower back pain: Status: Acute Qualifiers: Chronicity: chronic Back pain laterality: bilateral Sciatica presence: without sciatica Qualified Code(s): M54.50 - Low back pain, unspecified; G89.29 - Other chronic pain Category: Medical Code(s): M54.50 - Low back pain, unspecified (2) Left hip pain: Status: Acute Category: Medical Code(s): M25.552 - Pain in left hip Plan I will order the patient a compounded cream and send in a 2-week supply of meloxicam 15 mg daily. I have counseled the patient that I would like to order x-ray imaging followed by MRI without contrast of her lumbar spine. Patient acknowledges and is agreeable with this plan of care. Patient will return to clinic in 1 month for reevaluation of symptoms and plan of care. Patient has been instructed to contact the clinic with any concerns before the next appointment. Dr. Covarrubias has reviewed this note and agrees with this plan of care. This note was dictated using voice recognition software and make contain errors or omissions.
[2023-05-15 11:34] VITALS: BP 138/81; PULSE 110; RESP 18; O2SAT 99; BMI 41.8
== END | disposition home or self-care (01) ==
PROVIDERS: PCP Internal Medicine; Visit Provider Nurse Practitioner Family
DX: M54.50 Low back pain, unspecified (principal); G89.29 Other chronic pain; M25.552 Pain in left hip
CPT/HCPCS: 99202; G0463

== ENCOUNTER 2023-05-15 11:33 | Outpatient (CLI) | payer MEDICAID, SELFPAY ==
--- NOTE | 2023-05-15 | XR_ITS ---
FINAL REPORT CLINICAL HISTORY: Low back pain, no recent injury COMPARISON: None FINDINGS: LUMBOSACRAL SPINE SERIES Five views of the lumbosacral spine were obtained. There is no fracture present. There is no malalignment. There are no significant degenerative changes. IMPRESSION: No acute process. Reviewed, Interpreted and Dictated by Ronnie Tillman III, MD Transcribed by Luba Cristobal Authenticated and [facility]
== END 2023-05-15 23:59 ==
LOC: RAD 11:33
PROVIDERS: PCP Internal Medicine; Visit Provider Nurse Practitioner Family
DX: M25.552 Pain in left hip (principal); M54.50 Low back pain, unspecified
CPT/HCPCS: 72110

== ENCOUNTER 2023-07-04 13:36 | Outpatient (CLI) | payer MEDICAID, SELFPAY ==
--- NOTE | 2023-07-04 13:37 | US_ITS ---
PROCEDURE: US TRANSVAGINAL CLINICAL INDICATION: Heavy Periods COMPARISON: No exams were available for comparison FINDINGS: Transvaginal sonographic images of the pelvis were obtained. UTERUS: 9.3cm x 5.0cmx 3.3cm retroflexed with a combined endometrial thickness of 9.1mm. There is trace fluid at the fundus of the uterus. A scar is seen. LEFT OVARY: 3.0cmx1.8 cmx1.9cm with a volume of 5.4ml. There are multiple small follicles. RIGHT OVARY: 2.4cmx 1.9 cmx 1.8 cm with a volume of 4.2ml. There are multiple small follicles. Both ovaries are seen and appear normal. Doppler flow to both ovaries are seen. There is no fluid in the cul-de-sac. IMPRESSION: 1. Retroflexed, bulky uterus. The endometrium has a small collection of fluid. 2. Both ovaries are seen and appear polycystic. 3. No fluid in the cul-de-sac. Dictated by: Angel Patiño MD 07/05/2023 10:52 Angel Patiño MD in OV 07/05/2023 10:52
== END 2023-07-04 23:59 ==
LOC: RAD 13:37
PROVIDERS: PCP Internal Medicine; Visit Provider Nurse Practitioner Obstetrics & Gynecology
DX: N92.0 Excessive and frequent menstruation with regular cycle (principal); N93.9 Abnormal uterine and vaginal bleeding, unspecified
CPT/HCPCS: 76830

== ENCOUNTER 2023-08-26 12:33 | Outpatient (CLI) | payer MEDICAID, SELFPAY ==
[2023-08-26 12:54] LABS: Basophils # 0.1 K/mm3 (0-0.2); Basophils % 0.7 % (0.1-2.0); Eosinophils # 0.2 K/mm3 (0.0-0.4); Eosinophils % 2.7 % (0.1-12.0); Hematocrit 40.7 % (37.0-47.0); Hemoglobin 12.8 g/dL (12.2-16.2); Lymphocytes # 1.8 K/mm3 (0.7-4.5); Lymphocytes % 23.6 % (10-50); Mean Corpuscular HGB Conc 31.4 g/dL (31.8-35.4); Mean Corpuscular Volume 92.3 fl (81-99); Mean Platelet Volume 8.5 fl (7.4-10.4); Monocytes # 0.4 K/mm3 (0.1-1.0); Monocytes % 4.9 % (1.7-9.3); Neutrophils # 5.2 K/mm3 (1.8-7.8); Neutrophils % 68.2 % (37.0-80.0); Platelet Count 272 K/mm3 (142-424); Red Blood Count 4.41 M/mm3 (4.20-5.40); Red Cell Distribution Width 14.2 % (11.5-17.5); White Blood Count 7.6 K/mm3 (4.8-10.8)
[2023-08-26 13:34] LABS: HCG Qualitative, Serum Negative (Negative)
[2023-08-26 13:36] LABS: Alanine Aminotransferase 16 U/L (12-78); Albumin Level 4.2 g/dl (3.5-5.0); Albumin/Globulin Ratio 1.6 (1.1-1.8); Alkaline Phosphatase 69 U/L (38-126); Aspartate Amino Transferase 17 U/L (14-36); Bilirubin,Total 0.6 mg/dl (0.2-1.3); Blood Urea Nitrogen 14 mg/dl (7-17); Calcium 9.2 mg/dl (8.4-10.2); Carbon Dioxide 27 mmol/L (22.0-30.0); Chloride 106 mmol/L (98-107); Estimated Glomerular Filt Rate 98 ml/min (>60); GFR (African American) 119 ML/MIN (>60); Globulin 2.6 g/dL (1.3-3.2); Glucose 84 mg/dl (74-100); Sodium 139 mmol/L (136-145); Total Protein,Serum 6.8 g/dl (6.3-8.2)
== END 2023-08-26 23:59 | disposition home or self-care (01) ==
LOC: LAB 12:34
PROVIDERS: PCP Internal Medicine; Visit Provider Nurse Practitioner Obstetrics & Gynecology
DX: N92.1 Excessive and frequent menstruation with irregular cycle (principal)
CPT/HCPCS: 36415; 80053; 84703; 85025

== ENCOUNTER 2023-09-01 06:00 | Day surgery (SDC) | payer MEDICAID, SELFPAY ==
[2023-09-01] VITALS (11 sets, daily range): BP systolic 110–140; BP diastolic 59–90; PULSE 66–101; RESP 16–18; TEMP 36.1–37; O2SAT 91–99; BMI 41.5
[2023-09-01] MEDS: LACTATED RINGERS 1000ML 1,000 ML 25 ML IV (06:41)
--- NOTE | 2023-09-01 07:07 | EXP.ANES.CKL ---
[facility] Disclaimer: The information contained in this section may have been updated after the patient was seen, as this information can be updated by other users. Medical History Diabetes Anxiety Surgical History Hx of tubal ligation Previous section Family History Other Unknown family medical history Social History Smoking Status: Current every day smoker tobacco type: e-cigarettes alcohol intake: never substance use type: denies use current occupational status: unemployed Travel in the last 8 weeks: None housing: house [facility] Anesthesia Checklist Patient Identification Patient Identification: Arm Band and Verbal (Name & ) Structural Data Admitted From: Home Planned Operative Procedure/s: Hyst/D &C Consent for Planned Operative Procedure(s) Verified: Yes NPO Status Verified Time NPO: 00:00 Chart Verification Results Verified: CBC, BMP and HCG Additional verifications Anesthesia Reactions: No Hx Blood Transfusions: No Blood Transfusion Reaction: No Airway Assessment Mallampati Score:: Class II C-Spine Mobility Assessed: Yes TMJ Mobility Assessed: Yes Dentition: Good Dentition Neurological Assessment Level of Consciousness: Awake Hx Seizures: No Numbness or tingling in extremities: No Anesthesia Plan Anesthesia Risk discussed: Yes Anesthesia Plan: Verified ASA Class: III Anesthesia Type: General
[2023-09-01] MEDS: CEFAZOLIN SODIUM 2 GM in 0.9 % SODIUM CHLORIDE 100 ML IV (07:50)
[2023-09-01] MEDS: ROPIVACAINE 0.5% 30ML VIAL 150 MG (07:50)
--- NOTE | 2023-09-01 08:02 | P.PNANES_ITS ---
[facility] Anesthesia Record Part I Anesthesia Record I Intake, IV Amount: 700 Hydration: Adequate Estimated blood loss (mL): 10 Urine output (mL): 50 Blood Products used (#): none Blood Pressure: 119/69 SaO2: 91 Pulse Rate: 85 Airway Patency: Patent Respiratory Rate: 16 Temperature: 98.6 F Patient is:: Drowsy and Stable Stable to PACU at:: 08:00
--- NOTE | 2023-09-01 08:23 | EXP.OP.NOTE ---
Date of procedure: 09/01/23 Pre-op Diagnosis:: Menorrhagia, dysmenorrhea Post-op Diagnosis:: Menorrhagia, dysmenorrhea Procedure performed:: Hysteroscopy, dilation and curettage, NovaSure blood Surgeon:: Angel Patiño MD ELECTRIC METER INSTALLER:: Pablo Mckeon Anesthesia: LMA Estimated blood loss (mL): 25 Clinical Note:: She is a 28-year-old lady who complains of extremely heavy, painful periods. She says the periods are also irregular. She has tried various forms of control in the past and these did not really help. As result of that she is offered NovaSure ablation. Operative findings:: She had an anteverted uterus that sounded to 9 cm. The length of the endometrial cavity was 6 cm and the width was 4.2 cm. The endometrium appeared irregular since she was on her period. The endometrium appeared thin. Operative note:: She was taken to the operating room where LMA anesthesia was found be adequate. She was prepped and draped in the normal sterile fashion in the lithotomy position. A weighted speculum was placed in the vagina and the anterior lip of the cervix was grasped with a tenaculum. The cervix was then dilated to approximately 6 mm. I then inserted a hysteroscope into the uterine cavity and the findings were as previously dictated. I then performed a gentle curettage with a medium curette. I then sounded the uterus and determine the length of the uterus. I then inserted the NovaSure device and determine the width of the endometrial cavity. The length of the cavity was 6 cm and the width was 4.2 cm. This was placed into the NovaSure device. I then ran the device through its program. I further inspected the endometrial cavity and was found to be completely charred. I then injected 30 cc of 0.5% ropivacaine at the 3:00, 5:00, 7:00, and 9:00 positions of the cervix. She tolerated procedure well and was taken to the recovery room in excellent condition. All sponge and instrument counts were correct. The estimated blood loss was less than 25 cc. Condition: stable Disposition: PACU Specimens:: Endometrial curettings Complications:: None
--- NOTE | 2023-09-01 09:37 | P.PNANES_ITS ---
[facility] Anesthesia Record Part II Anesthesia Record Part II Discharge Time: 08:30 Destination: Surgical Day Care (OP Surgery) PACU nurse assessment reviewed?: Yes Patient Condition:: Good Anesthesia Complications:: None Swallowing reflex intact?: Yes Airway Patency: Patent Cyanosis?: No Blood Pressure: 137/73 SaO2: 96 Respiratory Rate: 17 Pulse Rate: 72 Temperature: 97 F Mental Status: Alert & Oriented Pain level:: 0 Nausea and/or vomitting:: None Intake, IV Amount: 0 Hydration: Adequate
--- NOTE | 2023-09-01 11:59 | SUR.PHASEI ---
All charting and care given by Joycelyn Grover RN under the direct supervision of Shalonda Capellan RN
== END 2023-09-01 09:14 | disposition home or self-care (01) ==
PROVIDERS: PCP Internal Medicine; Visit Provider Nurse Practitioner Obstetrics & Gynecology
PROC: 0U5B8ZZ Destruction of Endometrium, Via Natural or Artificial Opening Endoscopic (ICD-10-PCS; CPT 58563; principal; 2023-09-01 07:30)
DX: N92.0 Excessive and frequent menstruation with regular cycle (principal); N94.6 Dysmenorrhea, unspecified
CPT/HCPCS: 58563; 96374; J2405

== ENCOUNTER 2024-05-14 09:15 | Outpatient (CLI) | payer MEDICAID, SELFPAY ==
[2024-05-14 18:02] LABS: Basophils # 0.1 K/mm3 (0-0.2); Basophils % 0.7 % (0.1-2.0); Eosinophils # 0.2 K/mm3 (0.0-0.4); Eosinophils % 2.3 % (0.1-12.0); Hematocrit 39.5 % (37.0-47.0); Hemoglobin 12.9 g/dL (12.2-16.2); Lymphocytes # 2.2 K/mm3 (0.7-4.5); Lymphocytes % 31.6 % (10-50); Mean Corpuscular HGB Conc 32.7 g/dL (31.8-35.4); Mean Corpuscular Hemoglobin 28.7 pg (27.0-31.2); Mean Corpuscular Volume 87.8 fl (81-99); Mean Platelet Volume 10.6 fl (7.4-10.4); Monocytes # 0.4 K/mm3 (0.1-1.0); Neutrophils # 4.1 K/mm3 (1.8-7.8); Neutrophils % 59.1 % (37.0-80.0); Platelet Count 301 K/mm3 (142-424); Red Cell Distribution Width 12.8 % (11.5-17.5)
[2024-05-14 18:53] LABS: Alanine Aminotransferase 20 U/L (12-78); Albumin Level 4.3 g/dl (3.5-5.0); Albumin/Globulin Ratio 1.6 (1.1-1.8); Alkaline Phosphatase 72 U/L (38-126); Aspartate Amino Transferase 20 U/L (14-36); Bilirubin,Total 0.3 mg/dl (0.2-1.3); Blood Urea Nitrogen 11 mg/dl (7-17); Calcium 9.4 mg/dl (8.4-10.2); Carbon Dioxide 25 mmol/L (22.0-30.0); Chloride 104 mmol/L (98-107); Cholesterol 170 mg/dl (140-200); Estimated Glomerular Filt Rate 98 ml/min (>60); GFR (African American) 118 ML/MIN (>60); Globulin 2.7 g/dL (1.3-3.2); Glucose 82 mg/dl (74-100); HDL Cholesterol 34 mg/dl (40-60); Sodium 139 mmol/L (136-145); Triglycerides 117 mg/dl (30-150); VLDL Cholesterol 23 mg/dL (0-40)
[2024-05-14 19:10] LABS: 25-OH Vitamin D, Total 26.5 ng/mL (30-100)
[2024-05-14 19:24] LABS: Thyroid Stimulating Hormone 2.09 uIU/mL (0.465-4.68)
== END 2024-05-14 23:59 | disposition home or self-care (01) ==
LOC: LAB.DROPOF 05-17 09:15
PROVIDERS: PCP Family Medicine; Visit Provider Family Medicine
DX: E66.01 Morbid (severe) obesity due to excess calories (principal)
CPT/HCPCS: 80053; 80061; 82306; 84443; 85025

== ENCOUNTER 2024-05-31 09:46 | Outpatient (CLI) | payer MEDICAID, SELFPAY ==
--- NOTE | 2024-05-31 10:01 | XR_ITS ---
FINAL REPORT CLINICAL HISTORY: low back pain x7 years COMPARISON: 05/15/2023 FINDINGS: 3 views of the lumbar spine were obtained. There is no evidence of fracture. There is no malalignment. The vertebrae are normal in height. Disc spaces are preserved. No paraspinous soft tissue abnormalities identified. IMPRESSION: No acute process. Reviewed, Interpreted and Dictated by Tone Malone MD Transcribed by Mary Walker Authenticated and [facility]
== END 2024-05-31 23:59 | disposition home or self-care (01) ==
LOC: RAD 09:47
PROVIDERS: PCP Family Medicine; Visit Provider Family Medicine
DX: M54.50 Low back pain, unspecified (principal); G89.29 Other chronic pain
CPT/HCPCS: 72100

== ENCOUNTER 2024-06-21 10:06 | Outpatient (POV) | payer MEDICAID, SELFPAY ==
--- NOTE | 2024-06-21 10:12 | EXP.PAIN.OV ---
HPI Data of Consult Patient: new to practice Consult date: 06/21/24 Requesting Physician: Monica Colunga APRN Primary Care Provider: Gorge York MD Consult Narrative Reason for consult: Low back pain, left hip pain History of present illness: Ms. Sharp is a 29 year old female who presents today as a new patient. She is a referral from Dr. Betancur office. Today she rates her pain a 7 out of 10. She states she has had chronic hip pain primarily on the left side that radiates to her low back. Patient states this has been going on for a few years unrelated to any specific trauma or injury. Patient does feel like that it did all start after she had had her kids following epidurals. Patient describes it as an aching, throbbing sensation with some numbness and tingling and that it does come and go. She states when it does come it is pretty significant and does interfere with her ability perform activities of daily living such as cooking and cleaning. Patient states that she has not really tried oral medications, heat ice or topicals. She denies any physical therapy or surgery history. She states that they did try and order MRI however it was denied due to not having physical therapy. Patient states she has difficulty getting to the hospital for physical therapy. Patient is interested in any help we may be able to provide. CC: Monica Colunga APRN [facility] Disclaimer: The information contained in this section may have been updated after the patient was seen, as this information can be updated by other users. Medical History Depression Anxiety Surgical History H/O dilation and curettage H/O: hysterectomy Hx of tubal ligation Previous section Family History Other Unknown family medical history Social History Smoking Status: Current every day smoker tobacco type: e-cigarettes alcohol intake: never substance use type: denies use current occupational status: unemployed Travel in the last 8 weeks: None housing: house Have you lived/traveled outside US in past 30 days?: No Contact w/someone who lives/traveled outside US past 30 days?: No Exposure to someone with infectious disease in past 14 days?: No Do you have a fever (greater than 100.4 F or 38 C)?: No Have you tested positive for COVID-19: No Exposed to someone with COVID-19 in past 14 days?: No Do you have a sore throat?: No Do you have a cough?: No Do you have any weakness?: No Do you have any diarrhea?: No Are you experiencing any unusual bleeding?: No Do you have any muscle aches/pain?: No Do you have any abdominal pain?: No Are you experiencing loss of taste or smell?: No Review of Systems Review of Systems Review of systems:: pertinent systems reviewed and negative unless documented below Review of systems (narrative): Review of Systems: General: No recent weight changes, no fever, no sleep disturbances Respiratory: No cough, no shortness of air, no recurring pulmonary infections Cardiovascular/peripheral vascular: No chest pain, no palpitations, no edema, no shortness of breath Gastrointestinal: No new onset incontinence, normal bowel movements reported Genitourinary: No new onset incontinence Musculoskeletal: Low back pain, left hip pain Psychiatric: [Normal mood/affect] Neurological: [Denies weakness in extremities], [denies balance issues] Meds Home Medications and Allergies Home Medications ?Medication ?Instructions ?Recorded ?Confirmed ?Type diclofenac sodium 1 % topical gel 2 g topical QID #100 grams 12/16/23 05/14/24 Rx lidocaine 5 % topical patch See Rx Instructions .Route 12/16/23 05/14/24 Rx .COMPLEX #30 patches bupropion HCl 75 mg tablet 75 mg PO BID #60 tabs 04/06/24 05/14/24 Rx metformin 1,000 mg tablet 1,000 mg PO BID #60 tabs 04/06/24 05/14/24 Rx duloxetine 30 mg capsule,delayed 30 mg PO BID #60 caps 05/16/24 Rx release naproxen 500 mg tablet See Rx Instructions .Route 05/16/24 Rx .COMPLEX #60 tabs ergocalciferol (vitamin D2) 1,250 1,250 mcg PO .COMPLEX #30 caps 05/17/24 Rx mcg (50,000 unit) capsule (Vitamin D2) hydroxyzine HCl 25 mg tablet 25 mg PO BID PRN anxiety #60 tabs 05/20/24 Rx gabapentin 800 mg tablet See Rx Instructions .Route 06/17/24 Rx .COMPLEX #90 tabs New Prescriptions to Start Prescriptions: Allergies Allergy/AdvReac Type Severity Reaction Status Date / Time No Known Drug Intolerances Allergy Unknown NA Verified 05/14/24 13:05 Objective Narrative: Physical Exam: General: Alert and oriented x3, no acute distress, pleasant and cooperative Lungs: Respirations even and unlabored, symmetrical chest expansion Eyes: PERRL Musculoskeletal: Flexion and extension of lumbar [spine] somewhat guarded secondary to pain, [antalgic gait noted] point tenderness along bilateral SIs with positive bilateral Shahida's, Ellie's, Gaenslen's, compression and distraction exam Neurological: Speech clear, no gross sensory deficit Additional findings Additional findings: FINDINGS: 3 views of the lumbar spine were obtained. There is no evidence of fracture. There is no malalignment. The vertebrae are normal in height. Disc spaces are preserved. No paraspinous soft tissue abnormalities identified. IMPRESSION: No acute process. Reviewed, Interpreted and Dictated by Tone Malone MD Transcribed by Mary Walker Authenticated and [facility] Assessment and Plan *Assessment and plan (1) Lower back pain: Status: Acute Qualifiers: Chronicity: chronic Back pain laterality: bilateral Sciatica presence: without sciatica Qualified Code(s): M54.50 - Low back pain, unspecified; G89.29 - Other chronic pain Category: Medical Code(s): M54.50 - Low back pain, unspecified (2) Left hip pain: Status: Acute Category: Medical Code(s): M25.552 - Pain in left hip (3) Bilateral sacroiliitis: Status: Acute Category: Medical Code(s): M46.1 - Sacroiliitis, not elsewhere classified Plan Patient is experiencing worsening pain along the low back and bilateral hips. They did have limited range of motion of the lumbar spine along with point tenderness along bilateral SI joints and a positive bilateral Shahida's, Ellie's, Gaenslen's, compression and distraction exam. I did discuss with the patient that I do believe they would benefit from bilateral SI injections. Risk and benefits were discussed with the patient however she states that she would like to talk to her boyfriend first. I will order her compounded cream and have her return to clinic in 2 weeks for reevaluation of symptoms and plan of care. Patient has been instructed to contact the clinic with any concerns before the next appointment. Dr. Covarrubias has reviewed this note and agrees with this plan of care. This note was dictated using voice recognition software and make contain errors or omissions. All injections are used with Lidocaine or Bupivacaine and Depo Medrol. Patient has been instructed to contact the clinic with any concerns before the next appointment. Dr. Covarrubias has reviewed this note and agrees with this plan of care. This note was dictated using voice recognition software and make contain errors or omissions. All injections are used with Lidocaine, Bupivacaine and Depo Medrol. Occasionally urine drug screen is needed to verify patient's compliance with our office pain contract. This is ordered based off specific treatments related to chronic pain with the potential to abuse certain medications.
[2024-06-21 10:15] VITALS: BP 135/83; PULSE 98; RESP 16; O2SAT 98; BMI 46.9
== END 2024-06-21 23:59 | disposition home or self-care (01) ==
LOC: SC.PAIN 10:07
PROVIDERS: PCP Family Medicine; Visit Provider Nurse Practitioner Family
DX: M54.50 Low back pain, unspecified (principal); G89.29 Other chronic pain; M25.552 Pain in left hip; M46.1 Sacroiliitis, not elsewhere classified; Z73.89 Other problems related to life management difficulty; U07.0 Vaping-related disorder
CPT/HCPCS: 99202; G0463

== ENCOUNTER 2024-08-10 11:19 | Outpatient (CLI) | payer MEDICAID, SELFPAY ==
--- NOTE | 2024-08-10 11:21 | XR_ITS ---
FINAL REPORT CLINICAL HISTORY: Left hip pain x 3 weeks post fall COMPARISON: None FINDINGS: An AP view of the pelvis and a frog leg view of the left hip were obtained. There is no acute fracture or dislocation. Joint space is preserved. Remaining osseous pelvis is without acute abnormality. Soft tissues are unremarkable. IMPRESSION: No acute osseous abnormality of the left hip. Reviewed, Interpreted and Dictated by Shannon Mendieta MD Transcribed by Mary Walker Authenticated and [facility]
== END 2024-08-10 23:59 | disposition home or self-care (01) ==
LOC: RAD 11:19
PROVIDERS: PCP Family Medicine; Visit Provider Family Medicine
DX: M25.552 Pain in left hip (principal)
CPT/HCPCS: 73502

== ENCOUNTER 2024-11-17 14:45 | Outpatient (POV) | payer MEDICAID, SELFPAY ==
--- OUTSIDE RECORDS SUMMARY | 2024-11-17 14:47 | XMS_ITS | Clinical Summary ---
Author Organization Healthcare Address [address] [place] [address] Care Team Providers Care Material Lister Name Role Phone Unavailable Primary Care Provider Unavailabl e Social History Tobacco Use Types Packs/Day Years Used Date Smoking Tobacco: Never Assessed Comments Unknown Sex and Gender Information Value Date Recorded Sex Assigned at Not on file Legal Sex Female 7:37 PM EDT Gender Identity Not on file Sexual Orientation Not on file Plan of Treatment Not on file
--- OUTSIDE RECORDS SUMMARY | 2024-11-17 14:48 | XMS_ITS | Clinical Summary ---
Author Organization [facility] yste Address [address] [place] [address] Care Team Providers Care Student Services Counselor Name Role Phone Provider, No Known Primary Care Provider Unavail able Allergies No known active allergies Medications ondansetron ODT (ZOFRAN-ODT) 4 MG disintegrating tablet Take 4 mg by mouth Every 8 (Eight) Hours As Needed for Nausea or Vomiting. Active Etonogestrel (NEXPLANON) 68 MG implant subdermal implant Inject 1 each into the skin 1 (One) Time. Active Social History Tobacco Use Types Packs/Day Years Used Date Smoking Tobacco: Former Cigarettes Q uit: 11/20/2016 Smokeless Tobacco: Never Alcohol Use Standard Drinks/Week Comments No 0 (1 standard drink = 0.6 oz pur e alcohol) Abuse Screen Answer Date Recorded Unsafe at Home or Work/School Not on file Feels Threatened by Someone? Not on file 02/2023 Does Anyone Keep You from Co ntacting Others or Doint Things Outside the Home? Not on file 02/05/2023 Physical Sign of Abuse Present Not on file 1 Housing Stability Answer Date Recorded Current Living Arrangements Not on file 01/26 Potentially Unsafe Housing Conditions Not on jasmyn e 02/05/2023 Family and Community Support Answer Paul e Recorded Help with Day-to-Day Activities Not on file 02/05/2023 Lonely or Isolated Not on file 02/05/2023 Employment Answer Date Recorded Do you want help finding or keeping work or a shara b? Not on file 02/05/2023 Disabilities Answer Date Recorded Concentrating, Remembering, or Making Decisions Difficulty Not on file 02/05/2023 Doing Errands Independently Difficulty Not on fi le 02/05/2023 Education Answer Date Recorded Help with school or training? Not on file Preferred Language Not on file 02/05/2023 Comments Unknown Sex and Gender Information Value Date Recorded Sex Assigned at Not on file Legal Sex Female 1:24 PM EST Gender Identity Not on file Sexual Orientation Not on file Last Filed Vital Signs Vital Sign Reading Time Taken Comments Blood Pressure - - Pulse 115 03/23/2017 1:59 PM EST Temperature 36.7 C (98 F) 03/23/2017 1:59 PM EST Respiratory Rate 16 03/23/2017 1:59 PM EST Oxygen Saturation 99% 03/23/2017 1:59 PM EST Inhaled Oxygen Concentration - - Weight 111 kg (245 lb) 03/23/2017 1:59 PM EST Height 165.1 cm (5' 5 ) 03/23/2017 1:59 PM EST Body Mass Index 40.77 03/23/2017 1:59 PM EST Plan of Treatment Health Maintenance Due Date Last Done Comments Annual Gynecologic Pelvic an d Breast Exam 1993 TDAP/TD VACCINES (1 - Tdap) 2012 ANNUAL PHYSICAL 03/23/2017 HEPATITIS C SCREENING 03/23/2017 COVID-19 Vaccine ( - 2023-2 5 season) 2023 INFLUENZA VACCINE 01/26/2025 Pneumococcal Vaccine 0-49 Aged Out No longer eligible based on patient's age to complete this topic Insurance Care Teams Student Services Counselor Relationship Specialty Start Date End Date Provider, No Known [facility] [place] [address] PCP - General 03/23/17
--- NOTE | 2024-11-17 14:51 | EXP.PAIN.SOA ---
[facility] Disclaimer: The information contained in this section may have been updated after the patient was seen, as this information can be updated by other users. Medical History Depression Anxiety Surgical History H/O dilation and curettage H/O: hysterectomy Hx of tubal ligation Previous section Family History Other Unknown family medical history Social History Smoking Status: Current every day smoker tobacco type: e-cigarettes alcohol intake: never substance use type: denies use current occupational status: other Travel in the last 8 weeks?: None housing: house PM Subjective & Objective Subjective Subjective:: Patient is a pleasant 29-year-old who presents today for worsening pain. She rates her pain today as 6 out of 10. Patient states that it is no longer going all across to her back but is primarily staying just on the left side and into her left hip. At her last visit we did discuss that she did have bilateral sacroiliitis and was recommended for these injections. At that time she wanted to discuss with her boyfriend. Patient does state now that she would like to proceed forward with injections. Patient states that she did go see Dr. Colunga'naga and that they did do a injection in that office specifically for her hip however it was not exactly where the pain is. Patient states that it is causing severe disability and that she is unable to do ADLs such as cooking and cleaning. Patient states that she feels like that leg just randomly gives out and she actually had a fall recently but denies any significant injury. Patient states the pain is just constant and she cannot get anything done. Patient was also ordered compounded cream at the last visit. Today she states that the cream did initially help however over time it just seem like it was not working as well. Patient is asking if there is anything we can do additionally to help with the pain while she waits for her injection.She has prescribed gabapentin from her PCP. Her Sea has been reviewed and is appropriate. Review of Systems: General: No recent weight changes, no fever, no sleep disturbances Respiratory: No cough, no shortness of air, no recurring pulmonary infections Cardiovascular/peripheral vascular: No chest pain, no palpitations, no edema, no shortness of breath Gastrointestinal: No new onset incontinence, normal bowel movements reported Genitourinary: No new onset incontinence Musculoskeletal: Low back pain, left hip pain Psychiatric: [Normal mood/affect] Neurological: [Denies weakness in extremities], [denies balance issues] Pain at rest (0-10 scale): 6 Objective Objective:: Physical Exam: General: Alert and oriented x3, no acute distress, pleasant and cooperative Lungs: Respirations even and unlabored, symmetrical chest expansion Eyes: PERRL Musculoskeletal: Flexion and extension of lumbar [spine] somewhat guarded secondary to pain, [antalgic gait noted] point tenderness along left SI with positive left Shahida's, Ellie's, Gaenslen's, compression and distraction exam Neurological: Speech clear, no gross sensory deficit Has patient had previous pain injection?: No Conservative treatment options previously tried: Home exercise plan (Longer than 12 weeks) Length of treatment: Longer than 12 weeks Meds Home Medications and Allergies Home Medications ?Medication ?Instructions ?Recorded ?Confirmed ?Type diclofenac sodium 1 % topical gel 2 g topical QID #100 grams 12/16/23 11/17/24 Rx lidocaine 5 % topical patch See Rx Instructions .Route 12/16/23 11/17/24 Rx .COMPLEX #30 patches ergocalciferol (vitamin D2) 1,250 1,250 mcg PO .COMPLEX #30 caps 05/17/24 11/17/24 Rx mcg (50,000 unit) capsule (Vitamin D2) bupropion HCl 75 mg tablet 75 mg PO BID #60 tabs 09/13/24 11/17/24 Rx metformin 1,000 mg tablet 1,000 mg PO BID #60 tabs 10/04/24 11/17/24 Rx gabapentin 800 mg tablet See Rx Instructions .Route 10/14/24 11/17/24 Rx .COMPLEX #90 tabs hydroxyzine HCl 25 mg tablet 25 mg PO BID PRN anxiety #60 tabs 10/14/24 11/17/24 Rx duloxetine 30 mg capsule,delayed 30 mg PO BID #60 caps 11/13/24 11/17/24 Rx release naproxen 500 mg tablet See Rx Instructions .Route 07/19/25 07/23/25 Rx .COMPLEX #60 tabs diclofenac sodium 75 mg 75 mg PO BID #28 tabs 11/17/24 Rx tablet,delayed release methocarbamol 750 mg tablet 750 mg PO BID #28 tabs 11/17/24 Rx New Prescriptions to Start Prescriptions: diclofenac sodium Monica Colunga A methocarbamol ColungaMonica Allergies Allergy/AdvReac Type Severity Reaction Status Date / Time No Known Drug Intolerances Allergy Unknown NA Verified 11/02/24 14:30 Assessment and Plan *Assessment and plan (1) Sacroiliac joint dysfunction of left side: Status: Acute Category: Medical Code(s): M53.3 - Sacrococcygeal disorders, not elsewhere classified Plan Patient is experiencing worsening pain along her low back and left hip with limited range of motion. Patient did have point tenderness along her left SI during today's exam. I did discuss with patient that I do believe she would benefit from a left SI injection. Risk and benefits were discussed with the patient and she would like to proceed forward with this plan of care. Patient has had this pain for longer than 3 years unrelieved with conservative measures such as oral medication, heat and ice, topicals, at home stretching exercise for longer than 12 weeks. Patient was counseled that if she does end up getting significant relief with her initial SI injection that we will plan on additional in future with the possibility of her being a potential candidate of a SI fusion in future. This will be a diagnostic SI injection with less than 1 mL of solution to be injected. Patient is currently on naproxen however states that this does not seem to make much difference. I did discuss with her that I will send in a 2-week dose of diclofenac 75 mg twice daily. She denied any heart or kidney issues. Patient was counseled to discontinue the naproxen as well as any other NSAIDs and to take this with food to minimize GI upset. Patient was also sent in a 2-week dose of methocarbamol 750 mg twice daily as needed. Patient was counseled to try these 2 medications a couple of days apart in order to make sure that if she were to have a reaction that she could tell which 1 caused it. Patient acknowledges understanding and agrees with this plan of care. Patient will be scheduled for a left SI injection under fluoroscopy. Patient has been instructed to contact the clinic with any concerns before the next appointment. Dr. Covarrubias has reviewed this note and agrees with this plan of care. This note was dictated using voice recognition software and make contain errors or omissions. All injections are used with Lidocaine, Bupivacaine and dexamethasone unless diagnostic in which case there is no steroids injected. Occasionally urine drug screen is needed to verify patient's compliance with our office pain contract. This is ordered based off specific treatments related to chronic pain with the potential to abuse certain medications.
[2024-11-17 14:55] VITALS: BP 148/99; BP 151/94; PULSE 112; RESP 12; O2SAT 97; BMI 41.1
== END 2024-11-17 23:59 | disposition home or self-care (01) ==
PROVIDERS: PCP Family Medicine; Visit Provider Nurse Practitioner Family
DX: M53.3 Sacrococcygeal disorders, not elsewhere classified (principal)
CPT/HCPCS: 99212; G0463

== ENCOUNTER 2024-12-20 11:32 | Outpatient (CLI) | payer MEDICAID, SELFPAY ==
[2024-12-20 17:49] LABS: Alanine Aminotransferase 31 U/L (12-78); Albumin Level 4.3 g/dl (3.5-5.0); Albumin/Globulin Ratio 1.7 (1.1-1.8); Alkaline Phosphatase 76 U/L (38-126); Anion Gap 13.6 mEq/L (5-15); Aspartate Amino Transferase 22 U/L (14-36); Bilirubin,Total 0.4 mg/dl (0.2-1.3); Blood Urea Nitrogen 16 mg/dl (7-17); Calcium 9.4 mg/dl (8.4-10.2); Carbon Dioxide 25 mmol/L (22.0-30.0); Chloride 104 mmol/L (98-107); Cholesterol 188 mg/dl (140-200); Creatinine,Serum 0.50 mg/dl (0.52-1.04); Estimated Glomerular Filt Rate 144 ml/min (>60); GFR (African American) 174 ML/MIN (>60); Globulin 2.5 g/dL (1.3-3.2); Glucose 75 mg/dl (74-100); HDL Cholesterol 53 mg/dl (40-60); Potassium 4.6 mmoL/L (3.5-5.1); Sodium 138 mmol/L (136-145); Total Protein,Serum 6.8 g/dl (6.3-8.2); Triglycerides 92 mg/dl (30-150)
[2024-12-20 18:22] LABS: Thyroid Stimulating Hormone 2.75 uIU/mL (0.465-4.68)
--- OUTSIDE RECORDS SUMMARY | 2024-12-22 10:07 | XMS_ITS | Clinical Summary ---
Author Organization Healthcare Address [address] [place] [address] Care Team Providers Care Straw Hat Brim Cutter Operator Name Role Phone Unavailable Primary Care Provider [...]
--- OUTSIDE RECORDS SUMMARY | 2024-12-22 10:07 | XMS_ITS | Clinical Summary ---
Author Organization [facility] yste Address [address] [place] [address] Care Team Providers Care Commercial Driver'S License Driver Name Role Phone Provider, No Known Primary [...] to complete this topic Insurance Care Teams Commercial Driver'S License Driver Relationship Specialty Start Date End Date Provider, No Known [facility] [place] [address] PCP - General 03/23/17
== END 2024-12-20 23:59 | disposition home or self-care (01) ==
LOC: LAB.DROPOF 12-22 10:06
PROVIDERS: PCP Family Medicine; Visit Provider Family Medicine
DX: I10 Essential (primary) hypertension (principal)
CPT/HCPCS: 80053; 80061; 84443

== ENCOUNTER 2025-01-13 19:48 | Emergency (ER) | payer MEDICAID, SELFPAY ==
[2025-01-13 19:54] VITALS: BP 149/101; PULSE 104; RESP 16; TEMP 36.7; O2SAT 98; BMI 38.9
[2025-01-13 19:59] VITALS: BP 134/78; PULSE 84; RESP 18; TEMP 36.6; O2SAT 96
--- NOTE | 2025-01-13 20:03 | PC.NURSE ---
Pt awake alert and oriented Skin pink warm and dry Resp full and easy Pt will not bear weight on left leg Speech clear and appropriate.
--- OUTSIDE RECORDS SUMMARY | 2025-01-13 20:04 | XMS_ITS | Clinical Summary ---
Author Organization [facility] yste Address [address] [place] [address] Care Team Providers Care Boilermaker Industrial Boilers Name Role Phone Provider, No Known Primary [...] 03/23/2017 HEPATITIS C SCREENING 03/23/2017 COVID-19 Vaccine (1 - 2023-2 5 season) 2024 INFLUENZA VACCINE 01/26/2025 Pneumococcal Vaccine 0-49 Aged Out No longer eligible based on patient's age to complete this topic Insurance Care Teams [employer] Relationship Specialty Start Date End Date Provider, No Known [facility] [place] [address] PCP - General 03/23/17
--- OUTSIDE RECORDS SUMMARY | 2025-01-13 20:04 | XMS_ITS | Clinical Summary ---
Author Organization Healthcare Address [address] [place] [address] Care Team Providers Care Lead Electrician Name Role Phone Unavailable Primary Care Provider [...]
--- NOTE | 2025-01-13 20:52 | ED_ITS ---
<Statement entered by Loni Ledesma DO - 01/16/25 01:25> I was consulted by the SIENNA, and we discussed the complexity of problems being addressed. I approve the treatment and management plan for this patient's care in the emergency department, thus performing a substantial portion of the medical decision making. Loni Ledesma DO Discharge Plan Disposition Patient Disposition: Home, Self-Care Condition: Good Prescriptions Prescriptions: New cyclobenzaprine 5 mg tablet 5 mg PO TID PRN (Reason: muscle spasm) Qty: 15 0RF No Action lidocaine 5 % adhesive patch,medicated See Rx Instructions .ROUTE .COMPLEX Qty: 30 2RF Dose Instruction: APPLY 1 PATCH ON SKIN DAILY AND LEAVE ON MOST PAINFUL AREA FOR UP TO 12 HRS Rx Instructions: APPLY 1 PATCH ON SKIN DAILY AND LEAVE ON MOST PAINFUL AREA FOR UP TO 12 HRS celecoxib 100 mg capsule 100 mg PO BID Qty: 60 2RF ergocalciferol (vitamin D2) [Vitamin D2] 1,250 mcg (50,000 unit) capsule 1,250 mcg PO .COMPLEX Qty: 30 2RF Rx Instructions: 1,250 mcg orally twice weekly; bupropion HCl 75 mg tablet 75 mg PO BID Qty: 60 2RF metformin 1,000 mg tablet 1,000 mg PO BID Qty: 60 2RF duloxetine 30 mg capsule,delayed release(DR/EC) 30 mg PO BID Qty: 60 2RF gabapentin 800 mg tablet See Rx Instructions .ROUTE .COMPLEX Qty: 90 1RF Dose Instruction: TAKE 1 TABLET BY MOUTH 3 TIMES A DAY Rx Instructions: TAKE 1 TABLET BY MOUTH 3 TIMES A DAY methocarbamol 500 mg tablet See Rx Instructions .ROUTE .COMPLEX Qty: 180 2RF Dose Instruction: TAKE TWO TABLETS BY MOUTH THREE TIMES A DAY Rx Instructions: TAKE TWO TABLETS BY MOUTH THREE TIMES A DAY diclofenac sodium 75 mg tablet,delayed release (DR/EC) 75 mg PO BID Qty: 60 0RF Referrals Follow up/Referrals: Gorge York MD [Primary Care Provider, Family Practice] - See instructions Activity Restrictions/Add. Instructions Additional Instructions/Restrictions: Take the Flexeril in addition to Tylenol Motrin in addition to your gabapentin and the lidocaine patches for pain control. Call Dr. Colunga's office to schedule a follow-up. Continue your physical therapy. Return to the emergency department for any acute or worsening symptoms. Clinical Impressions Clinical Impression: Hip pain Print Language Print Language: Ukrainian Discharge ED Provider: Loni Ledesma General Adult HPI <VIJAYA Rizzo - Last Filed: 01/13/25 21:45> General Chief complaint: PAIN Stated complaint: left hip pain and tingling,burning Time Seen by Provider: 01/13/25 20:21 Mode of Arrival: Ambulatory Source of Information: Patient Description of Symptoms (Recalled from ER Triage Doc. by RN): L hip pain for a year. Using crutches today due to unable to bear weight for pain Pt states she fell 2 days ago. Pt states she is having decreased sensation in left legt History of Present Illness HPI narrative: 29-year-old female presents to the emergency department with left hip pain going on for over a year that is worse over the last 2 to 3 days, patient states that she was going to grab her child when she slipped , on something the child had left on the floor, causing her to do the splits . She has been ambulating on the affected extremity, but is somewhat pain limiting, worsened today, she has been using crutches, she denies striking head, no LOC, no fever no chills no cough no chest pain, no congestion no shortness of breath no nausea no vomiting no constipation no diarrhea, no abdominal pain, no urinary type symptomatology, no saddle anesthesia, no urinary bladder or bowel dysfunction, patient denies any overt back pain, does have back pain at times, but states her main issue today is her hip , patient's family at the bedside states that she was seen in the [facility] emergency department yesterday, was given morphine , and states that did not touch my pain , and was told there is nothing they could do for me . Patient denies any alcohol tobacco or drug use, of note patient has been seen by orthopedics, has had what sounds like injections in her hip for left intertrochanteric bursitis, slated for MRI of the hip, but unable to obtain due 2 unknown reasons. She endorses some radicular type symptomatology that extends lateral down her left leg all the way to her feet and toes, she endorses numbness and tingling at times at times. Initial triage vitals unremarkable. Patient does not take any medications today for her pain. Of note, patient has had multiple lumbar x-rays and hip x-rays that showed no acute osseous abnormality in the past year. Please note that above description of symptoms, in this electronic medical record under categorization of recalled from ER triage doctor by RN are reflective of an initial nursing assessment, however, is not reflective of my full history and physical exam that was personally taken and clarified. Consequentially, this preceding description of symptoms, which may include the patient's categorized chief complaint in the EMR, do not reflect my personal clinical impression, and the ultimate description of history of present illness and patient stated complaints should be deferred to this section of the note. Unless stated otherwise or congruent with this section of the note, additional signs, symptoms, or incongruence should be interpreted as inaccurate with my clinical impression. Onset (ago): day(s) Related Data Previous Rx's ?Medication ?Instructions ?Recorded lidocaine 5 % topical patch See Rx Instructions .Route 12/16/23 .COMPLEX #30 patches ergocalciferol (vitamin D2) 1,250 1,250 mcg PO .COMPLE X #30 caps 05/17/24 mcg (50,000 unit) capsule (Vitamin D2) bupropion HCl 75 mg tablet 75 mg PO BID #60 tabs 09/13 metformin 1,000 mg tablet 1,000 mg PO BID #60 tabs 01/20 duloxetine 30 mg capsule,delayed 30 mg PO BID #60 caps 11/13/24 release gabapentin 800 mg tablet See Rx Instructions .Route 0 12/17/24 .COMPLEX #90 tabs methocarbamol 500 mg tablet See Rx Instructions .Route 12/31/24 .COMPLEX #180 tabs celecoxib 100 mg capsule 100 mg PO BID #60 caps 01/03 diclofenac sodium 75 mg 75 mg PO BID #60 tabs tablet,delayed release Held on 01/03/25. Instructions: Home Medication placed on hold at Doctor's office cyclobenzaprine 5 mg tablet 5 mg PO TID PRN muscle spa sm #15 01/13/25 tabs Allergies Allergy/AdvReac Type Severity Reaction Status Date / Time No Known Drug Intolerances Allergy Unknown NA Verified 01/03/25 09:05 [facility] <VIJAYA Rizzo - Last Filed: 01/13/25 21:45> [facility] Disclaimer: The information contained in this section may have been updated after the patient was seen, as this information can be updated by other users. Medical History Depression Anxiety Surgical History H/O dilation and curettage H/O: hysterectomy Hx of tubal ligation Previous section Family History Other Unknown family medical history Social History Smoking Status: Current every day smoker tobacco type: e-cigarettes alcohol intake: never substance use type: denies use current occupational status: other Travel in the last 8 weeks?: None housing: house Have you lived/traveled outside [place] in past 30 days?: No Contact w/someone who lives/traveled outside US past 30 days?: No Exposure to someone with infectious disease in past 14 days?: No Do you have a fever (greater than 100.4 F or 38 C)?: No Have you tested positive for COVID-19?: No Exposed to someone with COVID-19 in past 14 days?: No Do you have a sore throat?: No Do you have a cough?: No Do you have any weakness?: No Do you have any diarrhea?: No Are you experiencing any unusual bleeding?: No Do you have any muscle aches/pain?: No Do you have any abdominal pain?: No Are you experiencing loss of taste or smell?: No Other Medical History Have you received the Flu Vaccine for this season: No Have you received the Pneumonia Vaccine: No <VIJAYA Rizzo - Last Filed: 01/13/25 21:45> ROS Obtained: Yes All systems reviewed & no additional complaints except as documented Physical Exam <VIJAYA Rizzo - Last Filed: 01/13/25 21:45> General General appearance: alert and in no apparent distress Head Head exam: atraumatic and normocephalic Eye Eye exam: Present PERRL and EOMI ENT ENT exam: Present mucous membranes moist Neck Neck exam: Present normal inspection Chest Chest inspection: Present normal inspection and symmetric chest wall rise Respiratory Respiratory exam: Present normal lung sounds bilaterally; Absent respiratory distress Cardiovascular Cardiovascular exam: Present regular rate and normal rhythm Abdominal Exam Abdominal exam: Present soft; Absent tenderness, guarding, rebound or rigidity Extremities Exam Extremities exam: Present normal inspection, tenderness and other (Patient has pain out of portion physical exam with palpation to the lateral aspect of the hip joint, otherwise neurovascular intact patient refuses to do any range of motion of the hip joint due to pain); Absent full ROM Back Exam Back exam: Present normal inspection Comment: Patient uncooperative with exam and refuses to raise left leg off the bed Neurological Exam Neurological exam: Present alert, oriented X3 and other (5 out of 5 strength in the right lower extremity, 5 out of 5 strength with plantarflexion in the left lower extremity, patient refuses to dorsiflex, otherwise neurovascularly intact, no gross sensation deficit) Psychiatric Psychiatric exam: Present normal affect Skin Skin exam: Present warm and dry Medical Decision Making <VIJAYA Rizzo - Last Filed: 01/13/25 21:45> Medical Records Medical records reviewed: Yes I reviewed the patient's medical records. Screening: Per USPSTF and CDC recommendations, given the prevalence of disease in our region, it is our hospital?s policy to screen for HIV and viral Hepatitis for all patients aged 18 and over and those with ongoing risk factors. Sea Inquiry Pt receiving controlled substance: No Sea was queried for this patient: No Vital Signs: 01/13/25 19:54 01/13/25 19:59 01/13/25 23:43 Temperature 98.0 F 97.8 F 98.0 F Temperature Source Oral Oral Pulse Rate 84 90 Pulse Rate [Right Radial] 104 H Respiratory Rate 16 18 16 Blood Pressure 134/78 122/87 Blood Pressure [Right Arm] 149/101 H Blood Pressure Mean [Right Arm] 117 Blood Pressure Source Automatic Cuff Automatic Cuff Blood Pressure Source [Right Arm] Automatic Cuff Blood Pressure Position Sitting Sitting Blood Pressure Position [Right Arm] Sitting 02 Sat by Pulse Oximetry 98 96 98 Oxygen Delivery Method Room Air Room Air Room Air 01/13/25 23:45 Temperature 98.0 F Temperature Source Oral Pulse Rate 90 Pulse Rate [Right Radial] Respiratory Rate 16 Blood Pressure 122/87 Blood Pressure [Right Arm] Blood Pressure Mean [Right Arm] Blood Pressure Source Automatic Cuff Blood Pressure Source [Right Arm] Blood Pressure Position Sitting Blood Pressure Position [Right Arm] 02 Sat by Pulse Oximetry Oxygen Delivery Method Room Air Orders (Tests/Meds): ED MEDICATIONS Discontinued Medications Generic Name Dose Route Start Last Admin Trade Name Freq PRN Reason Stop Dose Admin Cyclobenzaprine HCl 10 mg 01/13/25 20:59 01/13/25 21:05 Cyclobenzaprine 10mg Tablet PO 01/13/25 21:00 10 mg ONCE ONE Administration Ketorolac Tromethamine 15 mg 01/13/25 21:00 01/13/25 21:05 Ketorolac 15mg/Ml Vial IM 01/13/25 21:01 15 mg ONCE ONE Administration ORDERS Category Date Time Status XR hip LT 2-3V w/pelvis Stat Exams 01/13/25 20:59 Completed Medical Decision Narrative: 29-year-old female presents to the emergency department with left hip pain, that extends laterally, for a year, worsened with the last 2 to 3 days due to a slip and fall differential diagnose include but not limited to sciatica, intertrochanteric bursitis, left hip sprain/strain, IT band syndrome, hip fracture, among others. Will obtain x-rays of the patient's left hip and pelvis, will give 10 mg p.o. Flexeril, and 15 mg IM Toradol for pain. I discussed this patient's case with attending physician Dr. Ledesma at shift change, she will be assuming the patient's care/workup, disposition is pending reexamination and x-ray reads. <Loni Ledesma, DO - Last Filed: 01/16/25 01:28> Vital Signs: 01/13/25 19:54 01/13/25 19:59 01/13/25 23:43 Temperature 98.0 F 97.8 F 98.0 F Temperature Source Oral Oral Pulse Rate 84 90 Pulse Rate [Right Radial] 104 H Respiratory Rate 16 18 16 Blood Pressure 134/78 122/87 Blood Pressure [Right Arm] 149/101 H Blood Pressure Mean [Right Arm] 117 Blood Pressure Source Automatic Cuff Automatic Cuff Blood Pressure Source [Right Arm] Automatic Cuff Blood Pressure Position Sitting Sitting Blood Pressure Position [Right Arm] Sitting 02 Sat by Pulse Oximetry 98 96 98 Oxygen Delivery Method Room Air Room Air Room Air 01/13/25 23:45 Temperature 98.0 F Temperature Source Oral Pulse Rate 90 Pulse Rate [Right Radial] Respiratory Rate 16 Blood Pressure 122/87 Blood Pressure [Right Arm] Blood Pressure Mean [Right Arm] Blood Pressure Source Automatic Cuff Blood Pressure Source [Right Arm] Blood Pressure Position Sitting Blood Pressure Position [Right Arm] 02 Sat by Pulse Oximetry Oxygen Delivery Method Room Air Lab Data Lab results reviewed: Yes I reviewed the patient's lab results. Orders (Tests/Meds): ED MEDICATIONS Discontinued Medications Generic Name Dose Route Start Last Admin Trade Name Jose PRN Reason Stop Dose Admin Cyclobenzaprine HCl 10 mg 01/13/25 20:59 01/13/25 21:05 Cyclobenzaprine 10mg Tablet PO 01/13/25 21:00 10 mg ONCE ONE Administration Ketorolac Tromethamine 15 mg 01/13/25 21:00 01/13/25 21:05 Ketorolac 15mg/Ml Vial IM 01/13/25 21:01 15 mg ONCE ONE Administration ORDERS Category Date Time Status XR hip LT 2-3V w/pelvis Stat Exams 01/13/25 20:59 Completed Medical Decision Narrative: 29-year-old female presents to the emergency department with left hip pain, that extends laterally, for a year, worsened with the last 2 to 3 days due to a slip and fall differential diagnose include but not limited to sciatica, intertrochanteric bursitis, left hip sprain/strain, IT band syndrome, hip fracture, among others. Will obtain x-rays of the patient's left hip and pelvis, will give 10 mg p.o. Fl exeril, and 15 mg IM Toradol for pain. I discussed this patient's case with attending physician Dr. Ledesma at shift change, she will be assuming the patient's care/workup, disposition is pending reexamination and x-ray reads. Loni Ledesma, DO I assumed care of the patient at 2200. XR's were reviewed and interpreted by myself and showed no acute pathology. Patient was sent a muscle relaxer, advised to use Tylenol and ibuprofen as well as lidocaine patches. Patient already in physical therapy and has pain management f/u. Critical Care <VIJAYA Rizzo - Last Filed: 01/13/25 21:45> Critical Care Time Critical Care Time: No
--- NOTE | 2025-01-13 20:59 | XR_ITS ---
PROCEDURE INFORMATION: Exam: XR Left Hip Exam date and time: 01/13/2025 9:05 PM Age: 29 years old Clinical indication: Hip pain; Left hip; Additional info: Left hip pain TECHNIQUE: Imaging protocol: Radiologic exam of the left hip. Views: 2 or 3 views hip with pelvis when performed. COMPARISON: CR XR HIP LT 2-3V W/PELVIS 08/10/2024 11:23 AM FINDINGS: Bones/joints: Unremarkable. No acute fracture. Soft tissues: Unremarkable. IMPRESSION: No acute findings.
[2025-01-13] MEDS: CYCLOBENZAPRINE 10MG TABLET 10 MG PO (21:05)
[2025-01-13] MEDS: KETOROLAC 15MG/ML VIAL 15 MG IM (21:05)
[2025-01-13 23:43] VITALS: BP 122/87; PULSE 90; RESP 16; TEMP 36.7; O2SAT 98
[2025-01-13 23:45] VITALS: BP 122/87; PULSE 90; RESP 16; TEMP 36.7; O2SAT 96
== END 2025-01-13 23:50 | disposition home or self-care (01) ==
PROVIDERS: Emergency Provider Student in an Organized Health Care Education/Training Program; PCP Family Medicine
DX: M25.552 Pain in left hip (principal); F17.290 Nicotine dependence, other tobacco product, uncomplicated; W01.10XA Fall on same level from slipping, tripping and stumbling with subsequent striking against unspecified object, initial encounter
CPT/HCPCS: 73502; 96372; 99283; J1885